=== PATIENT | female | born 1945 | race Caucasian/White ===

== ENCOUNTER 2016-06-13 17:32 | Inpatient (IN) | payer MEDICARE ==
[2016-06-13] MEDS ORDERED: SODIUM CHLORIDE 0.9% 1,000 ML IV STA (18:02)
[2016-06-13] MEDS ORDERED: ONDANSETRON ODT 8 MG TAB.RAPDIS PO STA (18:02)
[2016-06-13] MEDS ORDERED: HYDROmorphone 1 MG/ML 1 ML SYRINGE IVP STA (18:02)
--- NOTE | 2016-06-13 18:03 | ED ---
Abdominal Pain HPI - General Source: patient, RN/, RN notes reviewed Mode of arrival: ambulatory Limitations: no limitations <Ivett Yanez - Last Filed: 06/13/16 21:45> <Alejandro Cortez - Last Filed: 06/13/16 22:12> - General Chief Complaint: Abdominal Pain Stated Complaint: abd pain,fever Time Seen by Provider: 06/13/16 17:43 - History of Present Illness Initial Comments: Patient is a 71-year-old female with chief complaint of right upper quadrant abdominal pain for the past 4 days. Patient reports that this all occurred after eating a turkey dinner on Friday evening. She states that Friday evening into Friday she had sharp pains in her right upper quadrant. Patient reports that since then she's only been eating crackers and water as she is concerned that the pain will return. She saw her primary care provider in the sent her for a CAT scan. She had a CAT scan completed earlier today which revealed cholelithiasis. Patient states that she's also noticed that she's had a fever for the past 2 days. She states that she is in relatively good health. She does have a history of hypertension. She denies any abdominal surgeries in the past. (Ivett Yanez) - Related Data Home Medications Medication Instructions Recorded Confirmed Calcitriol 0.25 mcg PO BID 06/13/16 06/13/16 Enalapril [Vasotec] 5 mg PO DAILY 06/13/16 06/13/16 Ergocalciferol (Vitamin D2) 50,000 unit PO Q30D 06/13/16 06/13/16 [Vitamin D2] Fexofenadine HCl [Aishwarya Allergy] 180 mg PO DAILY PRN 06/13/16 06/13/16 Furosemide [Lasix] 20 mg PO Q48H 06/13/16 06/13/16 Lansoprazole 30 mg PO DAILY 06/13/16 06/13/16 Metoprolol Succinate [Toprol XL] 100 mg PO BID 06/13/16 06/13/16 Oxybutynin Chloride [Ditropan] 5 mg PO BID 06/13/16 06/13/16 Ranitidine HCl [Zantac] 75 mg PO DAILY PRN 06/13/16 06/13/16 Turmeric Root Extract [Turmeric] 500 mg PO DAILY 06/13/16 06/13/16 traMADol HCL [Ultram] 100 mg PO Q6H PRN 06/13/16 06/13/16 Allergies Allergy/AdvReac Type Severity Reaction Status Date / Time banana Allergy Anaphylaxis Verified 06/13/16 18:07 monosodium glutamate [MSG] Allergy Anaphylaxis Verified 06/13/16 18:07 ibuprofen [From Motrin] AdvReac Unknown Verified 06/13/16 18:07 Review of Systems ROS Other: All systems not noted in ROS Statement are negative. <Ivett Yanez - Last Filed: 06/13/16 21:45> ROS Other: All systems not noted in ROS Statement are negative. <Alejandro Cortez - Last Filed: 06/13/16 22:12> ROS Statement: Those systems with pertinent positive or pertinent negative responses have been documented in the HPI. Past Medical History Past Medical History: Hypertension, Osteoarthritis (OA) History of Any Multi-Drug Resistant Organisms: None Reported Past Surgical History: Hysterectomy, Joint Replacement Additional Past Surgical History / Comment(s): knee replacements Past Psychological History: No Psychological Hx Reported Smoking Status: Never smoker Past Alcohol Use History: Occasional Past Drug Use History: None Reported <Ivett Yanez - Last Filed: 06/13/16 21:45> General Exam Limitations: no limitations General appearance: alert, in no apparent distress Head exam: Present: atraumatic, normocephalic, normal inspection Eye exam: Present: normal appearance, PERRL, EOMI. Absent: scleral icterus, conjunctival injection, periorbital swelling ENT exam: Present: normal exam, normal oropharynx, mucous membranes moist Neck exam: Present: normal inspection. Absent: tenderness, meningismus, lymphadenopathy Respiratory exam: Present: normal lung sounds bilaterally. Absent: respiratory distress, wheezes, rales, rhonchi, stridor Cardiovascular Exam: Present: regular rate, normal rhythm, normal heart sounds. Absent: systolic murmur, diastolic murmur, rubs, gallop, clicks GI/Abdominal exam: Present: soft, tenderness (Sinus tenderness over the right upper quadrant. Positive Trevino sign.), normal bowel sounds. Absent: distended , guarding, rebound, rigid Extremities exam: Present: normal inspection, full ROM, normal capillary refill. Absent: tenderness, pedal edema, joint swelling, calf tenderness Back exam: Present: normal inspection Neurological exam: Present: alert, oriented X3, CN II-XII intact Psychiatric exam: Present: normal affect, normal mood Skin exam: Present: warm, dry, intact, normal color. Absent: rash <Ivett Yanez - Last Filed: 06/13/16 21:45> <Alejandro Cortez - Last Filed: 06/13/16 22:12> - General Exam Comments Initial Comments: Pleasant 71-year-old female. No distress. (Ivett Yanez) Course <Ivett Yanez - Last Filed: 06/13/16 21:45> <Alejandro Cortez - Last Filed: 06/13/16 22:12> Vital Signs 06/13/16 06/13/16 06/13/16 17:36 18:39 21:26 Temperature 100.6 F H 99.8 F H 99 F Pulse Rate 94 77 Respiratory 18 19 Rate Blood Pressure 133/63 117/56 O2 Sat by Pulse 99 Oximetry 06/13/16 22:11 Temperature 99.0 F Pulse Rate 88 Respiratory 18 Rate Blood Pressure O2 Sat by Pulse 98 Oximetry - Reevaluation(s) Reevaluation #1: 06/13/16 21:37 Patient reevaluated by myself, Dr. Cortez. Patient does have moderate right upper quadrant tenderness. Results reviewed. Patient updated. Case discussed in detail with Dr. Reddy who will consult and requests medical admission with GI consult as well. 06/13/16 21:37 06/13/16 21:38 Patient does meet sepsis criteria diagnosed at 2100. IV antibiotics has been started. Lactic acid will be ordered. (Alejandro Cortez) Medical Decision Making - Lab Data Result diagrams: 06/13/16 18:30 06/13/16 18:30 - Radiology Data Radiology results: report reviewed <Ivett Yanez - Last Filed: 06/13/16 21:45> - Lab Data Result diagrams: 06/13/16 18:30 06/13/16 18:30 <Alejandro Cortez - Last Filed: 06/13/16 22:12> - Medical Decision Making Patient is 71-year-old female chief complaint of abdominal pain and fever for the past few days. She did have an outpatient CT which did show cholelithiasis P David she does have positive right upper quadrant tenderness. Lab work was reviewed. She does have a mildly elevated total bili of 2.6. Patient labwork is relatively benign. She does arrive with a fever. Patient was started on IV Zosyn. Currently pending and right upper quadrant ultrasound. Right upper quadrant ultrasound to show evidence of a cold fluid consistent with acute cholecystitis. I discussed case with Dr. Cortez. We discussed case with Dr. mendez and he wants consult for GI and for her to be admitted and to medicine. Patient agrees with treatment plan will comply. (Ivett Yanez) Case was also discussed with Dr. chakraborty, who will admit. (Alejandro Cortez) - Lab Data Lab Results 06/13/16 06/13/16 06/13/16 Range/Units 18:30 18:30 21:22 WBC 9.9 (3.8-10.6) k/uL RBC 3.71 L (3.80-5.40) m/uL Hgb 12.0 (11.4-16.0) gm/dL Hct 34.0 (34.0-46.0) % MCV 91.7 (80.0-100.0) fL MCH 32.3 (25.0-35.0) pg MCHC 35.2 (31.0-37.0) g/dL RDW 12.2 (11.5-15.5) % Plt Count 146 L (150-450) k/uL Neutrophils % 84 % Lymphocytes % 6 % Monocytes % 8 % Eosinophils % 0 % Basophils % 0 % Neutrophils # 8.3 H (1.3-7.7) k/uL Lymphocytes # 0.6 L (1.0-4.8) k/uL Monocytes # 0.8 (0-1.0) k/uL Eosinophils # 0.0 (0-0.7) k/uL Basophils # 0.0 (0-0.2) k/uL Sodium 132 L (137-145) mmol/L Potassium 4.1 (3.5-5.1) mmol/L Chloride 97 L (98-107) mmol/L Carbon Dioxide 27 (22-30) mmol/L Anion Gap 8 mmol/L BUN 15 (7-17) mg/dL Creatinine 0.90 (0.52-1.04) mg/dL Est GFR (MDRD) Af Amer >60 (>60 ml/min/1.73 sqM) Est GFR (MDRD) Non-Af >60 (>60 ml/min/1.73 sqM) Glucose 90 (74-99) mg/dL Calcium 9.4 (8.4-10.2) mg/dL Total Bilirubin 2.6 H (0.2-1.3) mg/dL AST 40 H (14-36) U/L ALT 38 (9-52) U/L Alkaline Phosphatase 85 (38-126) U/L Total Protein 5.7 L (6.3-8.2) g/dL Albumin 3.2 L (3.5-5.0) g/dL Amylase 34 (30-110) U/L Lipase 50 (23-300) U/L Urine Color Yellow Urine Appearance Clear (Clear) Urine pH 5.5 (5.0-8.0) Ur Specific [place] 1.038 H (1.001-1.035) Urine Protein Trace H (Negative) Urine Glucose (UA) Negative (Negative) Urine Ketones 1+ H (Negative) Urine Blood Negative (Negative) Urine Nitrite Negative (Negative) Urine Bilirubin Negative (Negative) Urine Urobilinogen <2.0 (<2.0) mg/dL Ur Leukocyte Esterase Negative (Negative) - Radiology Data Ultrasound shows evidence of acute cholecystitis. (Ivett Yanez) Disposition <Ivett Yanez - Last Filed: 06/13/16 21:45> <Alejandro Cortez - Last Filed: 06/13/16 22:12> Clinical Impression: Acute cholecystitis Disposition: ADMITTED IP TO THIS HOSP
[2016-06-13] MEDS ORDERED: ONDANSETRON 4 MG/2 ML VIAL IVP STA (18:15)
[2016-06-13 18:46] LABS: Basophils % (A) 0 %; CH 31.6; CHCM 34.6; Eosinophils % (A) 0 %; HDW 2.43; Luc # (Auto) 0.23; Luc % (Auto) 2; Lymphocytes # (A) 0.6 k/uL (1.0-4.8); Lymphocytes % (A) 6 %; MCH 32.3 pg (25.0-35.0); MCHC 35.2 g/dL (31.0-37.0); MCV 91.7 fL (80.0-100.0); Mean Platelet Volume 6.7; Monocytes # (A) 0.8 k/uL (0-1.0); Monocytes % (A) 8 %; Neutrophils # (A) 8.3 k/uL (1.3-7.7); Neutrophils % (A) 84 %; RBC 3.71 m/uL (3.80-5.40); RDW 12.2 % (11.5-15.5); WBC 9.9 k/uL (3.8-10.6)
[2016-06-13 18:49] LABS: ALT 38 U/L (9-52); AST 40 U/L (14-36); Alkaline Phosphatase 85 U/L (38-126); Amylase 34 U/L (30-110); Anion Gap 8 mmol/L; Blood Urea Nitrogen 15 mg/dL (7-17); Calcium 9.4 mg/dL (8.4-10.2); Carbon Dioxide 27 mmol/L (22-30); Chloride 97 mmol/L (98-107); Glucose 90 mg/dL (74-99); Non-African American GFR(MDRD) >60 (>60 ml/min/1.73 sqM); Potassium 4.1 mmol/L (3.5-5.1); Sodium 132 mmol/L (137-145); Total Bilirubin 2.6 mg/dL (0.2-1.3); Total Protein 5.7 g/dL (6.3-8.2)
[2016-06-13] MEDS ORDERED: PIPERACILLIN-TAZOBACTAM 3.375 GM in DEXTROSE/WATER 1 50ML.BAG IVPB STA (19:24)
--- NOTE | 2016-06-13 20:41 | US ---
EXAMINATION TYPE: US gallbladder DATE OF EXAM: 06/13/2016 8:12 PM COMPARISON: CT in PACS CLINICAL HISTORY: Pain after eating, [place]. EXAM MEASUREMENTS: Liver Length: 17.6 cm Gallbladder Wall: 1.3 cm CBD: 0.5 cm Right Kidney: 10.0 x 5.5 x 4.4 cm Pancreas: Tail obscured by overlying bowel gas, visualized portions show no mass Liver: Measuring upper limits of normal Gallbladder: Multiple large stones visualized, largest measuring 3.3 cm. Gallbladder wall thickened and Pericholecystic fluid visualized Evidence for sonographic Trevino's sign: No CBD: wnl Right Kidney: No hydronephrosis or masses seen IMPRESSION: There are gallstones and gallbladder wall thickening consistent with acute and chronic ch olecystitis. No dilated ducts.
[2016-06-13] MEDS ORDERED: NALOXONE 0.4 MG/ML 1 ML VIAL IV PRN (21:37)
[2016-06-13] MEDS ORDERED: LORATADINE 10 MG TAB PO PRN (21:46)
[2016-06-13] MEDS ORDERED: FAMOTIDINE 20 MG TAB PO PRN (21:46)
[2016-06-13 21:49] LABS: Appearance,Urine Clear (Clear); Bilirubin,Urine Negative (Negative); Glucose,Urine (UA) Negative (Negative); Ketones,Urine 1+ (Negative); Leukocyte Esterase,Urine Negative (Negative); Nitrite,Urine Negative (Negative); PH, Urine 5.5 (5.0-8.0); Protein,Urine Trace (Negative); Specific Gravity,Urine 1.038 (1.001-1.035); UA Billing (MACRO vs. MICRO) CHEM; Urobilinogen,Urine <2.0 mg/dL (<2.0)
[2016-06-13] MEDS ORDERED: FUROSEMIDE 20 MG TAB PO ONE (22:15)
[2016-06-13] MEDS: SODIUM CHLORIDE 0.9% 1,000 ML IV SCH (22:59)
[2016-06-14] MEDS: PIPERACILLIN-TAZOBACTAM 3.375 GM in DEXTROSE/WATER 1 50ML.BAG IVPB SCH ×3 (05:23→17:23)
[2016-06-14] MEDS: ACETAMINOPHEN IV (For NPO) 1,000 MG in EMPTY BAG 1 BAG IVPB SCH ×4 (05:48→17:23)
[2016-06-14 06:21] VITALS: BMI 30.6
[2016-06-14 07:22] LABS: Total Bilirubin 1.8 mg/dL (0.2-1.3)
[2016-06-14] MEDS: CALCITRIOL 0.25 MCG CAP PO SCH ×2 (08:23→19:52)
[2016-06-14] MEDS: LISINOPRIL 10 MG TAB PO SCH (08:23)
[2016-06-14] MEDS: OXYBUTYNIN CHLORIDE 5 MG TAB PO SCH ×2 (08:23→19:52)
[2016-06-14] MEDS: PANTOPRAZOLE 40 MG/10 ML VIAL IV SCH (08:59)
[2016-06-14] MEDS: METOPROLOL SUCCINATE (ER) 100 MG TAB.ER.24H PO SCH ×2 (08:59→19:52)
[2016-06-14] MEDS ORDERED: NON-FORMULARY DRUG (Turmeric Root Extract [Turmeric] 500 MG) PO SCH (09:00)
[2016-06-14] MEDS ORDERED: NON-FORMULARY DRUG (Lansoprazole [Lansoprazole] 30 MG) PO SCH (09:00)
--- NOTE | 2016-06-14 11:04 | P.GSCN ---
<Christi Bailey - Last Filed: 06/14/16 10:51> History of Present Illness Consult date: 06/14/16 Reason for Consult: Abdominal pain History of present illness: 71-year-old female who presented on the day of admission to the emergency room on the with a chief complaint of developing right upper quadrant abdominal pain onset 4 days prior. Patient stated that she woke up Friday morning around 2:30 in the morning with sharp intractable right upper quadrant pain. Patient stated that she thought it was something she ate. She stated that there was a sensation of nausea did not have an emesis. Patient stated the pain continued to persist. Patient stated that she did see her primary care provider in the office and was sent for CAT scan CAT scan was done on the it did show cholelithiasis. Patient stated that she was advised to come to the emergency room to be admitted. Patient also stated that she felt feverish with chills and took her temperature was noticed to have a fever. In the emergency room the temp was 100.6. With a white count of 9.9. Additionally the patient was seen in the emergency room did undergo a ultrasound to evaluate the right upper quadrant pain. The ultrasound did show evidence of fluid consistent with acute cholecystitis. The temp this morning is 98.2. Patient states has not had prior episodes. Patient states has not had an intolerant to spicy or fatty foods in the past. Patient states there has been no frequent stooling. Or change in bowel habits Past surgical history bilateral knee replacements done a partial hysterectomy greater than 30 years prior. Patient states colonoscopy done greater than 10 years ago is no acute findings Patient states that she is a fairly active individual is currently working with activity has not had chest pain tightness or pressure has no cardiac history. Patient's past medical history significant for hypertension which the patient states has been under control as well as osteoarthritis Review of Systems Essentially unremarkable except as mentioned in the present illness Past Medical History Past Medical History: Hypertension, Osteoarthritis (OA) History of Any Multi-Drug Resistant Organisms: None Reported Past Surgical History: Hysterectomy, Joint Replacement Additional Past Surgical History / Comment(s): knee replacements Past Anesthesia/Blood Transfusion Reactions: No Reported Reaction Past Psychological History: No Psychological Hx Reported Smoking Status: Never smoker Past Alcohol Use History: Occasional Past Drug Use History: None Reported - Past Family History Mother Family Medical History: Congestive Heart Failure (CHF), Osteoarthritis (OA), Rheumatoid Arthritis (RA) Father Family Medical History: Cancer Additional Family Medical History / Comment(s): prostate ca Medications and Allergies Home Medications Medication Instructions Recorded Confirmed Type Calcitriol 0.25 mcg PO BID 06/13/16 06/13/16 History Enalapril [Vasotec] 5 mg PO DAILY 06/13/16 06/13/16 History Ergocalciferol (Vitamin D2) 50,000 unit PO Q30D 06/13/16 06/13/16 History [Vitamin D2] Fexofenadine HCl [Aishwarya Allergy] 180 mg PO DAILY PRN 06/13/16 06/13/16 History Furosemide [Lasix] 20 mg PO Q48H 06/13/16 06/13/16 History Lansoprazole 30 mg PO DAILY 06/13/16 06/13/16 History Metoprolol Succinate [Toprol XL] 100 mg PO BID 06/13/16 06/13/16 History Oxybutynin Chloride [Ditropan] 5 mg PO BID 06/13/16 06/13/16 History Ranitidine HCl [Zantac] 75 mg PO DAILY PRN 06/13/16 06/13/16 History Turmeric Root Extract [Turmeric] 500 mg PO DAILY 06/13/16 06/13/16 History traMADol HCL [Ultram] 100 mg PO Q6H PRN 06/13/16 06/13/16 History Allergies Allergy/AdvReac Type Severity Reaction Status Date / Time banana Allergy Anaphylaxis Verified 06/13/16 18:07 monosodium glutamate [MSG] Allergy Anaphylaxis Verified 06/13/16 18:07 ibuprofen [From Motrin] AdvReac Unknown Verified 06/13/16 18:07 Surgical - Exam Vital Signs Temp Pulse Resp BP Pulse Ox 100.6 F H 94 18 133/63 99 06/13/16 17:36 06/13/16 17:36 06/13/16 17:36 06/13/16 17:36 06/13/16 17:36 GENERAL APPEARANCE: 8-year-old female looking younger than stated age patient is alert, oriented, in no acute distress. Currently states right upper quadrant pain has resolved VITAL SIGNS: Reviewed HEENT: Head is normocephalic and atraumatic. Pupils are equal and reactive. The nares are patent. Oropharynx is clear without lesions. NECK: Supple without lymphadenopathy. Traches midline. HEART: S1, S2. Regular rate and rhythm. Denying chest pain no murmur LUNGS: No crackles or wheezes are heard. On room air sats are 97% no cough noted ABDOMEN: Soft, slight tenderness to the right upper quadrant, nondistended with good bowel sounds. No peritoneal signs. No palpable organomegaly or masses. EXTREMITIES: Normal skin color and turgor. No cyanosis, rash, ulceration, clubbing or edema. Radial pedal pulses are 2/4 bilaterally. NEUROLOGICAL: No focal deficits. Strength and sensation are grossly intact. Results - Labs 06/13/16 18:30 06/13/16 18:30 Abnormal Lab Results - Last 24 Hours (Table) 06/14/16 06/14/16 Range/Units 06:53 06:53 Plasma Lactic Acid [place] 0.6 L (0.7-2.0) mmol/L Total Bilirubin 1.8 H (0.2-1.3) mg/dL Adrenal panel 06/14/16 Range/Units 06:53 Total Bilirubin 1.8 H (0.2-1.3) mg/dL Assessment and Plan Plan: Impression Present on admission right upper quadrant pain febrile nausea suspect due to acute cholecystitis Ultrasound of the gallbladder on June 13 gallstones bowel wall thickening consistent with acute on chronic cholecystitis no dilated ducts Hypertension essential controlled History of osteoarthritis CAT scan of the abdomen pelvis done on the cholelithiasis Present on admission elevated total bilirubin Plan Await medical clearance tentatively scheduled for a laparoscopic cholecystectomy possible open this afternoon Await GIs input EKG now Pain control Continue IV Zosyn as ordered Resume home meds as appropriate DVT and GI prophylaxis IV fluid for hydration Tentatively tentatively schedule for a lap cholecystectomy this afternoon by surgical service Dr. Duran Thank you for allowing us to participate in the surgical management of your patient will follow closely with further recommendations pending clinical course The above dictated assessment and findings were discussed with dr duran . Impression and the plan of care have been dictated as directed. Christi Bailey nurse practitioner acting as a scribe for dr duran <Deonna Duran W - Last Filed: 06/14/16 13:50> Surgical - Exam Vital Signs Temp Pulse Resp BP Pulse Ox 100.6 F H 94 18 133/63 99 06/13/16 17:36 06/13/16 17:36 06/13/16 17:36 06/13/16 17:36 06/13/16 17:36 Results - Labs 06/14/16 06:53 06/14/16 06:53 Abnormal Lab Results - Last 24 Hours (Table) 06/14/16 06/14/16 06/14/16 Range/Units 06:53 06:53 06:53 RBC 3.43 L (3.80-5.40) m/uL Hgb 11.0 L (11.4-16.0) gm/dL Hct 32.5 L (34.0-46.0) % Lymphocytes # 0.5 L (1.0-4.8) k/uL Plasma Lactic Acid [place] 0.6 L (0.7-2.0) mmol/L Total Bilirubin 1.8 H (0.2-1.3) mg/dL Total Protein 4.9 L (6.3-8.2) g/dL Albumin 2.6 L (3.5-5.0) g/dL Diabetes panel 06/14/16 Range/Units 06:53 Sodium 139 (137-145) mmol/L Potassium 4.1 (3.5-5.1) mmol/L Chloride 104 (98-107) mmol/L Carbon Dioxide 27 (22-30) mmol/L BUN 12 (7-17) mg/dL Creatinine 0.93 (0.52-1.04) mg/dL Glucose 92 (74-99) mg/dL Calcium 9.3 (8.4-10.2) mg/dL AST 25 (14-36) U/L ALT 35 (9-52) U/L Alkaline Phosphatase 71 (38-126) U/L Total Protein 4.9 L (6.3-8.2) g/dL Albumin 2.6 L (3.5-5.0) g/dL Calcium panel 06/14/16 Range/Units 06:53 Calcium 9.3 (8.4-10.2) mg/dL Albumin 2.6 L (3.5-5.0) g/dL Pituitary panel 06/14/16 Range/Units 06:53 Sodium 139 (137-145) mmol/L Potassium 4.1 (3.5-5.1) mmol/L Chloride 104 (98-107) mmol/L Carbon Dioxide 27 (22-30) mmol/L BUN 12 (7-17) mg/dL Creatinine 0.93 (0.52-1.04) mg/dL Glucose 92 (74-99) mg/dL Calcium 9.3 (8.4-10.2) mg/dL Adrenal panel 06/14/16 Range/Units 06:53 Sodium 139 (137-145) mmol/L Potassium 4.1 (3.5-5.1) mmol/L Chloride 104 (98-107) mmol/L Carbon Dioxide 27 (22-30) mmol/L BUN 12 (7-17) mg/dL Creatinine 0.93 (0.52-1.04) mg/dL Glucose 92 (74-99) mg/dL Calcium 9.3 (8.4-10.2) mg/dL Total Bilirubin 1.8 H (0.2-1.3) mg/dL AST 25 (14-36) U/L ALT 35 (9-52) U/L Alkaline Phosphatase 71 (38-126) U/L Total Protein 4.9 L (6.3-8.2) g/dL Albumin 2.6 L (3.5-5.0) g/dL Assessment and Plan Plan: The patient has acute cholecystitis and s overall very healthy No cardiac history , ambulates normally for 3 blocks and climbs stairs without dyspnea or shortness of breath. Slightly higher than average risk due to age and duration of symptoms She understands the risks and is ready to proceed. (Deonna Duran MD)
[2016-06-14 11:59] LABS: ALT 35 U/L (9-52); AST 25 U/L (14-36); Alkaline Phosphatase 71 U/L (38-126); Anion Gap 8 mmol/L; Basophils % (A) 0 %; Blood Urea Nitrogen 12 mg/dL (7-17); CH 31.3; CHCM 33.2; Calcium 9.3 mg/dL (8.4-10.2); Carbon Dioxide 27 mmol/L (22-30); Chloride 104 mmol/L (98-107); Eosinophils # (A) 0.1 k/uL (0-0.7); Eosinophils % (A) 2 %; Glucose 92 mg/dL (74-99); HCT 32.5 % (34.0-46.0); HDW 2.39; Luc # (Auto) 0.15; Luc % (Auto) 2; Lymphocytes # (A) 0.5 k/uL (1.0-4.8); Lymphocytes % (A) 8 %; MCHC 33.8 g/dL (31.0-37.0); MCV 94.8 fL (80.0-100.0); Mean Platelet Volume 7.3; Monocytes # (A) 0.6 k/uL (0-1.0); Monocytes % (A) 9 %; Neutrophils # (A) 5.1 k/uL (1.3-7.7); Neutrophils % (A) 80 %; Non-African American GFR(MDRD) 60 (>60 ml/min/1.73 sqM); Potassium 4.1 mmol/L (3.5-5.1); RBC 3.43 m/uL (3.80-5.40); RDW 12.4 % (11.5-15.5); Sodium 139 mmol/L (137-145); Total Protein 4.9 g/dL (6.3-8.2); WBC 6.4 k/uL (3.8-10.6); WBC (Perox) 7.14
[2016-06-14] MEDS: HEPARIN SODIUM,PORCINE 5,000 UNIT/ML 1 ML VIAL SQ SCH ×2 (18:12→19:51)
--- NOTE | 2016-06-14 18:43 | CONS ---
DATE OF CONSULTATION: 06/14/2016 REASON FOR CONSULTATION: Abdominal pain, elevated LFTs. HISTORY OF PRESENT ILLNESS: The patient is a 71-year-old pleasant lady who was admitted to the hospital with acute onset of severe right upper quadrant abdominal pain that started on Friday morning. She woke up from sleep with severe pain followed by multiple episodes of nausea and vomiting. The pain continued to progressively get worse through the day, and the next day it started subsiding. She went and saw her family physician on an outpatient basis and was ordered a CT of the abdomen and pelvis done that was done yesterday morning and showed gallstones. She started having low-grade fever and hence came into the emergency room and subsequently was admitted to the hospital for further evaluation. She also had ultrasound of the right upper quadrant done yesterday in the ER and that showed multiple gallstones but no biliary ductal dilation. The reason we are consulted is because she was noted to have mild elevation of serum transaminases and bilirubin up to 2 at the time of admission to the hospital. Since being in the hospital she is feeling much better. She still has some right upper quadrant abdominal pain, but significantly improved. Nausea and vomiting have resolved. No further fever, chills or night sweats. Her past medical history is significant for degenerative joint disease and hypertension. PAST SURGICAL HISTORY: Hysterectomy and knee replacement. Medications at home include: 1. Ultram. 2. Zantac. 3. Ditropan. 4. Toprol. 5. Lansoprazole. 6. Lasix. 7. Vitamin D2. 8. Vasotec. 9. Calcitriol. ALLERGIES: MSG and IBUPROFEN. SOCIAL HISTORY: No smoking. No alcohol use. FAMILY HISTORY: Unremarkable. REVIEW OF SYSTEMS: CARDIOPULMONARY: No chest pain or shortness of breath. GENITOURINARY: No dysuria or hematuria. MUSCULOSKELETAL: Unremarkable. SKIN: Unremarkable. ENDOCRINE: Unremarkable. PSYCHIATRIC: Unremarkable. NEUROLOGY: Unremarkable. ENT/VISION: Unremarkable. CONSTITUTIONAL: No recent weight loss. No fever, chills, night sweats. On physical examination, she appears comfortable, in no apparent distress. Vital signs are stable. Blood pressure is 115/56, pulse rate 74, temperature 98.2. HEENT: Unremarkable. Conjunctivae pink. Sclerae anicteric. Oral cavity with no lesions. NECK: No JVD or lymph node enlargement. Chest was clear to auscultation. HEART: Regular rate and rhythm. ABDOMEN: Soft. There was mild tenderness in the right upper quadrant area. No rebound or rigidity. Bowel sounds are positive. No organomegaly. EXTREMITIES: No pedal edema. SKIN: No rashes. NEURO: Alert and oriented x3. No focal deficits. LABS DONE AT THE TIME OF ADMISSION TO THE HOSPITAL: Hemoglobin 12, WBC 9.9, platelets 146. T-bili was up to 2.6, but today it is down to 1.8. AST was 40. ALT was 38. Today they are 25 and 35, respectively. Amylase and lipase are within normal limits. IMPRESSION: This is a lady who presents with acute onset of severe right upper quadrant abdominal pain 3 days ago associated with nausea, vomiting, fever, chills; at present doing much better. Ultrasound and CT scan did show evidence of gallstones but no biliary ductal dilation. She was noted to have mild elevation of bilirubin up to 2.8 with minimal elevation of AST at 40, but ALT is 38. Today bilirubin is down to 1.3 and ALT and AST are completely normal. Ultrasound and CT scan did not show any biliary ductal dilation. At this time it is unlikely we are dealing with any common bile duct stones, given the minimal degree of serum transaminases elevation and improving bilirubin. RECOMMENDATIONS: 1. Proceed with gallbladder surgery as planned by Dr. Padilla today. 2. Repeat LFTs tomorrow. Will follow the patient closely during her hospital stay. Thank you for this consultation.
--- NOTE | 2016-06-14 23:04 | HP ---
DATE OF ADMISSION: 06/13/2016 PRESENTING COMPLAINT: Abdominal pain. HISTORY OF PRESENTING COMPLAINT: A very pleasant 71-year-old patient I saw this morning who follows with Dr. Manuel. Chronic stable medical conditions include hypertension, osteoarthritis. Patient about 5 days ago started to have right upper quadrant pain, progressed to have nausea, vomiting, chills, fever. Did go and see Dr. Manuel's nurse practitioner 2 days ago. Did have a gallbladder ultrasound yesterday that showed multiple large gallstones and evidence of acute cholecystitis. Patient did have a CT scan as an outpatient suggestive of the same. REVIEW OF SYSTEMS: CONSTITUTIONAL: Weak, tired, febrile. HEENT: None. RESPIRATORY: None. CARDIOVASCULAR: None. GASTROINTESTINAL: As above. GENITOURINARY: None. MUSCULOSKELETAL: Aches and pains in different joints. DERMATOLOGICAL: None. HEMATOLOGICAL: None. LYMPHATIC: None. PSYCHIATRY: None. NEUROLOGICAL: None. PAST MEDICAL HISTORY: Hypertension, osteoarthritis. PAST SURGICAL HISTORY: Joint replacement, knee replacement, hysterectomy. SOCIAL HISTORY: Lives by herself, drinks alcohol occasionally, does not smoke, helps out in the shopping mall. FAMILY HISTORY: CHF, osteoarthritis, rheumatoid arthritis, prostate cancer. HOME MEDICATIONS: 1. Ultram 100 mg every 6 hours p.r.n. 2. Demadex 5 mg p.o. daily. 3. Zantac 75 mg p.o. daily p.r.n. 4. Ditropan 5 mg p.o. b.i.d. 5. Toprol-XL 100 mg p.o. b.i.d. 6. Lansoprazole 30 mg p.o. daily. 7. Lasix 20 mg p.o. q.48 hours. 8. Vitamin D2, 50,000 units p.o. q. 30 days. 9. Vasotec 5 mg p.o. daily. 10. Calcitriol 0.25 mg p.o. b.i.d. ALLERGIES: BANANA, MONOSODIUM GLUTAMATE MOTRIN. On examination, vital signs on presentation: Temperature 100.6, pulse 94, respirations 18, blood pressure 133/63, pulse ox 99% on room air. GENERAL APPEARANCE: Average build, lying in bed, not in distress. EYES: Pupils equal. Conjunctivae normal. HEENT: Oral cavity normal. NECK: JVD not raised. Mass not palpable. RESPIRATORY: Effort normal. LUNGS: Fair air entry. CARDIOVASCULAR: First and second sounds normal. No edema. ABDOMEN: Right upper quadrant tenderness present. No guarding or rigidity. Liver and spleen not palpable. LYMPHATIC: No lymph nodes palpable in neck or axillae. PSYCHIATRIC: Alert and oriented x3. Mood and affect normal. NEUROLOGICAL: Pupils equal. Cranial nerves grossly intact. Power and sensation grossly intact. INVESTIGATIONS: White count 9.9, hemoglobin 12. Potassium 4.1. Ultrasound of the abdomen shows gallstones and pericholecystic fluid. ASSESSMENT: 1. Acute cholecystitis with gallstones. 2. Hyponatremia, suspect normo-osmolar, probably from vomiting. 3. Essential hypertension. 4. Primary osteoarthritis in multiple joints, bilateral. PLAN: From a cardiac standpoint, patient is rather active with no cardiac symptoms. Care was discussed with the patient. Mae for DVT prophylaxis. General Surgery was consulted.
[2016-06-14] MEDS: HYDROmorphone 1 MG/ML 1 ML SYRINGE IV PRN (23:19)
[2016-06-15] MEDS: PIPERACILLIN-TAZOBACTAM 3.375 GM in DEXTROSE/WATER 1 50ML.BAG IVPB SCH ×3 (02:16→17:45)
[2016-06-15] MEDS: SODIUM CHLORIDE 0.9% 1,000 ML IV SCH ×2 (02:42→04:29)
[2016-06-15 07:16] LABS: ALT 35 U/L (9-52); AST 25 U/L (14-36); Alkaline Phosphatase 75 U/L (38-126); Anion Gap 13 mmol/L; Blood Urea Nitrogen 10 mg/dL (7-17); Calcium 9.6 mg/dL (8.4-10.2); Carbon Dioxide 21 mmol/L (22-30); Chloride 111 mmol/L (98-107); Glucose 72 mg/dL (74-99); Non-African American GFR(MDRD) >60 (>60 ml/min/1.73 sqM); Potassium 4.6 mmol/L (3.5-5.1); Sodium 145 mmol/L (137-145); Total Bilirubin 1.4 mg/dL (0.2-1.3); Total Protein 5.2 g/dL (6.3-8.2)
[2016-06-15] MEDS: CALCITRIOL 0.25 MCG CAP PO SCH ×2 (07:44→21:10)
[2016-06-15] MEDS: OXYBUTYNIN CHLORIDE 5 MG TAB PO SCH ×2 (07:48→21:10)
[2016-06-15] MEDS: FUROSEMIDE 20 MG TAB PO SCH (07:48)
[2016-06-15] MEDS: LISINOPRIL 10 MG TAB PO SCH (07:48)
[2016-06-15] MEDS: METOPROLOL SUCCINATE (ER) 100 MG TAB.ER.24H PO SCH ×2 (07:48→21:53)
[2016-06-15] MEDS: HEPARIN SODIUM,PORCINE 5,000 UNIT/ML 1 ML VIAL SQ SCH ×2 (07:48→21:10)
[2016-06-15] MEDS: PANTOPRAZOLE 40 MG/10 ML VIAL IV SCH (07:49)
[2016-06-15] MEDS ORDERED: HYDROmorphone 1 MG/ML 1 ML SYRINGE IVP PRN (11:37)
[2016-06-15] MEDS ORDERED: ONDANSETRON 4 MG/2 ML VIAL IVP ONE (11:37)
[2016-06-15] MEDS ORDERED: DEXAMETHASONE SOD PHOSPHATE 10 MG/ML 1 ML VIAL IV ONE (11:37)
[2016-06-15] MEDS ORDERED: IV FLUID CONTINUATION 200 ML IV ONE (12:08)
[2016-06-15] MEDS ORDERED: ONDANSETRON 4 MG/2 ML VIAL ONE (12:08)
[2016-06-15] MEDS ORDERED: LIDOCAINE 1% INJ 10MG/ML (20 ML MDV) ONE (12:08)
[2016-06-15] MEDS ORDERED: HYDROmorphone (PF) 1 MG/ML ONE (12:08)
[2016-06-15] MEDS ORDERED: fentaNYL (PF) 50 MCG/ML 2 ML AMP ONE (12:08)
[2016-06-15] MEDS ORDERED: NEOSTIGMINE 1 MG/ML 10 ML VIAL ONE (12:08)
[2016-06-15] MEDS ORDERED: GLYCOPYRROLATE 0.2 MG/ML 2 ML VIAL ONE (12:08)
[2016-06-15] MEDS ORDERED: PROPOFOL 10 MG/ML 20 ML VIAL IV ONE (12:08)
[2016-06-15] MEDS ORDERED: SUCCINYLCHOLINE CHLORIDE 100 MG/5 ML SYR IV ONE (12:08)
[2016-06-15] MEDS ORDERED: ROCURONIUM BROMIDE 10 MG/ML 10 ML VIAL IV ONE (12:08)
[2016-06-15] MEDS ORDERED: MIDAZOLAM 2 MG/2 ML VIAL ONE (12:08)
[2016-06-15] MEDS ORDERED: SODIUM CHLORIDE 0.9% 1,000 ML IV ONE (12:30)
[2016-06-15] MEDS ORDERED: BUPIVACAIN-EPI 0.25%-1:200,000 30 ML VIAL SQ ONE (12:40)
--- NOTE | 2016-06-15 13:58 | PN ---
DATE OF SERVICE: 06/15/2016 Patient is a 71-year-old pleasant lady admitted to the hospital with acute onset of severe right upper quadrant abdominal pain for the last 4 days' duration with low-grade fever and chills. She did have ultrasound that showed evidence of gallstones and CAT scan also showed the same. She was noted to have mild elevation of serum transaminases and bili up to 2 and hence we are consulting in regards to this issue. She was seen in consultation yesterday. She is doing much better. The pain has resolved. She is going for gallbladder surgery today. She reports no new symptoms today. On physical examination, she appears comfortable in no apparent distress. Vital signs are stable. Blood pressure 110/56, pulse 67, temperature 98.3. HEENT: Unremarkable. Conjunctivae pink. Sclerae anicteric. Oral cavity, no lesions. NECK: No JVD or lymph node enlargement. Chest was clear to auscultation. HEART: Regular rate and rhythm. ABDOMEN: Soft. Bowel sounds are positive. Mild tenderness in the right upper quadrant area. EXTREMITIES: No pedal edema. SKIN: No rashes. NEURO: Alert and oriented x3. No focal deficits. Labs from today: CBC was not done, but liver enzymes showed an AST of 25. ALT is 35 and T-bili is 1.4. Amylase and lipase are normal. IMPRESSION: Symptomatic gallstones with possible acute cholecystitis. Ultrasound and CAT scan showed gallstones but no biliary ductal dilation. She was noted to have very minimal elevation of serum transaminases and bilirubin up to 2.6, but today they have almost normalized. Doubt dealing with any CBD stones. RECOMMENDATIONS: 1. Agree with laparoscopic cholecystectomy. 2. No indication for an ERCP. 3. Will sign off. Call us if needed. Thank you for this consultation.
[2016-06-15] MEDS: LACTATED RINGERS 1,000 ML IV SCH (14:20)
--- NOTE | 2016-06-15 14:23 | P.OP ---
Date of Procedure: 06/15/16 Preoperative Diagnosis: Acute cholecystitis Postoperative Diagnosis: Acute gangrenous cholecystitis Procedure(s) Performed: Laparoscopic cholecystectomy Anesthesia: JOEL Surgeon: Deonna Padilla Estimated Blood Loss (ml): 100 Pathology: other Condition: stable Disposition: PACU Operative Findings: Acutely inflamed gangrenous cholecysitits with large gallstones. Description of Procedure: Cole is a 71-year-old female who presented with abdominal pain in the epigastric region for the last 5 days there is no history of nausea vomiting she was having fever when she came in. There is no icterus on presentation however she had elevated bilirubin which has been trending downwards. Ultrasound revealed thickened gallbladder wall with acute on chronic cholecystitis. Clinical diagnosis of acute cholecystitis was made. And detailed discussion was done with the patient for the possibility of laparoscopic possible open cholecystectomy. Informed consent was obtained. Patient was identified in the preoperative operating holding area and after and question taken to the operating room placed in supine position given general anesthesia with endotracheal intubation. Appropriate timeout was called. Abdomen was prepped and draped in the usual sterile surgical fashion after which supraumbilical region was infiltrated with local anesthesia and incision made with 11 blade. Veress needle was used to enter the abdominal cavity and positioned checked with the help of a drop test after which the abdomen was insufflated to 18 mmHg. After the removal of the Veress needle with the help of the Optiview technique the abdominal cavity was entered with a 5 mm port. Two 5 mm ports were placed in the right upper quadrant and one 12 mm port in the epigastrium. Gallbladder was identified to be significantly distended and encased the inflammatory adhesions. Omental adhesions were taken down bluntly. Once the fundus was exposed the ovarian needle with a 50 cc syringe was used to decompress the gallbladder after which it was retracted superiorly and cephlad. There was a thick inflammatory tissue around it. The infundibulum was very thickened. The right lateral peritoneal attachment between the gallbladder and the liver were taken down with the help of electrocautery to allow more mobility. Further blunt dissection was done so as to remove the inflammatory tissue distal to the fundus in the region of the cystic duct and Calot's triangle. This led to clear identification of the cystic duct and Calot 's node. The artery was not identified clearly in the mass. Once the cystic duct was clearly identified as well as the CBD the cystic duct was clipped proximally and distally transected sharply. At this time there was bleeding from the cystic artery which allowed its identification and was clipped . It was transected with the help of cautery after which the gallbladder was taken off the gallbladder fossa with the help of electrocautery. It was noted was to the posterior wall also significantly thickened and there were pockets of pus between the gallbladder and the gallbladder fossa. The gallbladder was taken out and placed in an Endo Catch bag and removed to the epigastric site after dilation with the help of a Galina. The gallbladder was significantly distended and large approximately 6" x 4" x 3". The port was replaced and abdomen reinsufflated to 18 mmHg. The fossa was inspected and hemostasis secured with the help of electrocautery and placement of Surgicel material. After thoroughly irrigating and second right the abdomen round drain was placed in the subhepatic fossa and brought out to the 5 mm port site in the right side. It was secured with the help of 2-0 nylon. At this time the procedure was completed and ports were removed. The epigastric port site was closed with the help of a running 0 Vicryl using the UR 6. Skin in the epigastric portion was closed with sandee and the remaining with 4-0 Monocryl. Local anesthesia was infiltrated into the incisions. Dermabond was applied on the 5 mm port sites and dressing applied on the epigastric incision. Patient tolerated procedure well there were no other complications she was extubated and taken to recovery room in stable condition.
[2016-06-15] MEDS: HYDROmorphone 1 MG/ML 1 ML SYRINGE IV PRN (19:59)
[2016-06-16] MEDS: HYDROmorphone 1 MG/ML 1 ML SYRINGE IV PRN ×3 (01:25→11:07)
[2016-06-16] MEDS: PIPERACILLIN-TAZOBACTAM 3.375 GM in DEXTROSE/WATER 1 50ML.BAG IVPB SCH ×3 (01:25→16:51)
--- NOTE | 2016-06-16 07:22 | PN ---
DATE OF SERVICE: 06/15/2016 PRESENTING COMPLAINT: Acute cholecystitis. INTERVAL HISTORY: This patient earlier today underwent laparoscopic cholecystectomy by Dr. Padilla. Found to have gangrenous gallbladder, has got a drain in place. Some pain is present. The patient is on popsicles. Lying in bed. Review of systems done for constitutional, cardiovascular, GI, pulmonary; relevant findings as above. Current medications include IV Zosyn. On examination, temperature 97.2, pulse 93, respiratory rate 16, blood pressure 147/48, pulse ox 95% on room air. GENERAL APPEARANCE: Lying in bed, slightly uncomfortable. EYES: Pupils equal. Conjunctivae normal. NECK: JVD not raised. Mass not palpable. RESPIRATORY: Effort normal. Lungs are clear. CARDIOVASCULAR: First and second sounds normal. No edema. ABDOMEN: Tender, right upper quadrant pain, no guarding or rigidity. Liver and spleen not palpable. PSYCHIATRY: Alert and oriented x3. Mood and affect normal. INVESTIGATIONS: Potassium 4.6. ASSESSMENT: 1. Acute gangrenous cholecystitis with gallstones, status post laparoscopic cholecystectomy. 2. Hyponatremia, suspect normal osmolar. 3. Essential hypertension. 4. Primary osteoarthritis of multiple joints, bilateral. PLAN: Continue with IV antibiotics. Patient is on popsicles and IV fluids. Repeat labs in the morning. Care was discussed with the patient.
[2016-06-16] MEDS: HEPARIN SODIUM,PORCINE 5,000 UNIT/ML 1 ML VIAL SQ SCH ×2 (07:28→20:06)
[2016-06-16] MEDS: CALCITRIOL 0.25 MCG CAP PO SCH ×2 (07:28→20:06)
[2016-06-16] MEDS: OXYBUTYNIN CHLORIDE 5 MG TAB PO SCH ×2 (07:29→20:10)
[2016-06-16] MEDS: PANTOPRAZOLE 40 MG/10 ML VIAL IV SCH (07:29)
[2016-06-16 07:43] LABS: Basophils % (A) 0 %; CH 30.6; CHCM 31.5; Eosinophils % (A) 1 %; HCT 32.3 % (34.0-46.0); HDW 2.35; HGB 10.1 gm/dL (11.4-16.0); Luc # (Auto) 0.14; Luc % (Auto) 2; Lymphocytes # (A) 0.8 k/uL (1.0-4.8); Lymphocytes % (A) 13 %; MCH 30.5 pg (25.0-35.0); MCHC 31.2 g/dL (31.0-37.0); MCV 97.7 fL (80.0-100.0); Mean Platelet Volume 6.7; Monocytes # (A) 0.4 k/uL (0-1.0); Monocytes % (A) 7 %; Neutrophils # (A) 4.6 k/uL (1.3-7.7); Neutrophils % (A) 77 %; RBC 3.31 m/uL (3.80-5.40); RDW 12.9 % (11.5-15.5); WBC 5.9 k/uL (3.8-10.6); WBC (Perox) 6.18
[2016-06-16 08:01] LABS: ALT 42 U/L (9-52); AST 41 U/L (14-36); Alkaline Phosphatase 65 U/L (38-126); Anion Gap 8 mmol/L; Blood Urea Nitrogen 10 mg/dL (7-17); Calcium 8.8 mg/dL (8.4-10.2); Carbon Dioxide 24 mmol/L (22-30); Chloride 109 mmol/L (98-107); Glucose 90 mg/dL (74-99); Non-African American GFR(MDRD) >60 (>60 ml/min/1.73 sqM); Potassium 3.6 mmol/L (3.5-5.1); Sodium 141 mmol/L (137-145); Total Bilirubin 0.8 mg/dL (0.2-1.3); Total Protein 4.6 g/dL (6.3-8.2)
[2016-06-16] MEDS: LISINOPRIL 10 MG TAB PO SCH (09:50)
[2016-06-16] MEDS: LACTATED RINGERS 1,000 ML IV SCH (14:26)
[2016-06-16] MEDS: METOPROLOL SUCCINATE (ER) 100 MG TAB.ER.24H PO SCH ×2 (15:29→20:10)
[2016-06-16] MEDS: HYDROcodone/APAP 5-325MG 1 EACH TAB PO PRN ×2 (17:04→22:48)
[2016-06-17] MEDS: PIPERACILLIN-TAZOBACTAM 3.375 GM in DEXTROSE/WATER 1 50ML.BAG IVPB SCH ×2 (01:46→11:12)
[2016-06-17] MEDS: HYDROcodone/APAP 5-325MG 1 EACH TAB PO PRN ×2 (04:58→10:38)
[2016-06-17 07:05] LABS: Basophils % (A) 0 %; CH 31.1; CHCM 33.1; Eosinophils # (A) 0.1 k/uL (0-0.7); Eosinophils % (A) 2 %; HCT 31.5 % (34.0-46.0); HDW 2.52; HGB 10.5 gm/dL (11.4-16.0); Luc % (Auto) 2; Lymphocytes # (A) 0.8 k/uL (1.0-4.8); Lymphocytes % (A) 16 %; MCH 31.6 pg (25.0-35.0); MCHC 33.4 g/dL (31.0-37.0); MCV 94.5 fL (80.0-100.0); Mean Platelet Volume 7.3; Monocytes # (A) 0.3 k/uL (0-1.0); Monocytes % (A) 6 %; Neutrophils # (A) 3.4 k/uL (1.3-7.7); Neutrophils % (A) 73 %; RBC 3.34 m/uL (3.80-5.40); RDW 12.5 % (11.5-15.5); WBC 4.6 k/uL (3.8-10.6); WBC (Perox) 4.88
[2016-06-17 07:43] LABS: ALT 34 U/L (9-52); AST 28 U/L (14-36); Alkaline Phosphatase 68 U/L (38-126); Anion Gap 7 mmol/L; Blood Urea Nitrogen 7 mg/dL (7-17); Calcium 9.1 mg/dL (8.4-10.2); Carbon Dioxide 29 mmol/L (22-30); Chloride 110 mmol/L (98-107); Glucose 107 mg/dL (74-99); Non-African American GFR(MDRD) 57 (>60 ml/min/1.73 sqM); Potassium 3.9 mmol/L (3.5-5.1); Sodium 146 mmol/L (137-145); Total Bilirubin 0.6 mg/dL (0.2-1.3); Total Protein 4.8 g/dL (6.3-8.2)
--- NOTE | 2016-06-17 07:44 | PN ---
DATE OF SERVICE: 06/16/2016 PRESENTING COMPLAINT: Acute cholecystitis. INTERVAL HISTORY: This patient is status post surgery for gangrenous cholecystitis, doing better. Advanced to soft diet today. Patient had small liquid stool yesterday. Up and about. Abdominal pain is better controlled. No nausea or vomiting. Review of systems done for constitutional, cardiovascular, GI, pulmonary; relevant findings as above. Current medications are reviewed that include IV Zosyn. On examination, temperature 98.6, pulse 71, respiration 19, blood pressure 11/572, pulse ox 95% on room air. GENERAL APPEARANCE: Sitting up on a chair, comfortable. EYES: Pupils equal. Conjunctivae normal. NECK; JVD not raised. Mass not palpable. RESPIRATORY: Effort normal. Lungs are clear. CARDIOVASCULAR: First and second sounds normal. No edema. ABDOMEN: Drain in the right side. Liver and spleen not palpable. Some tenderness present. Bowel sounds are present. PSYCHIATRY: Alert and oriented x3. Mood and affect normal. INVESTIGATIONS: White count 5.9, hemoglobin 10.1. Potassium 3.6. ASSESSMENT: 1. Acute gangrenous cholecystitis with gallstones, status post laparoscopic cholecystectomy. 2. Hyponatremia, suspect hypoosmolar. 3. Essential hypertension. 4. Primary osteoarthritis of multiple joints, bilateral. 5. Hyperbilirubinemia, recovered. 6. Hypoalbuminemia, an acute phase reactant, not malnutrition. PLAN: Overall doing much better. Patient's sodium has recovered. Encouraged to ambulate.
[2016-06-17 07:52] VITALS: BP 135/98; PULSE 71; RESP 16; TEMP 98.3
[2016-06-17] MEDS: METOPROLOL SUCCINATE (ER) 100 MG TAB.ER.24H PO SCH (10:07)
[2016-06-17] MEDS: LISINOPRIL 10 MG TAB PO SCH (10:08)
[2016-06-17] MEDS: CALCITRIOL 0.25 MCG CAP PO SCH (10:08)
[2016-06-17] MEDS: FUROSEMIDE 20 MG TAB PO SCH (10:08)
[2016-06-17] MEDS: OXYBUTYNIN CHLORIDE 5 MG TAB PO SCH (10:08)
[2016-06-17] MEDS: PANTOPRAZOLE 40 MG/10 ML VIAL IV SCH (10:39)
[2016-06-17] MEDS: HEPARIN SODIUM,PORCINE 5,000 UNIT/ML 1 ML VIAL SQ SCH (10:39)
[2016-06-17] MEDS: LACTATED RINGERS 1,000 ML IV SCH (11:51)
--- NOTE | 2016-06-17 12:51 | P.DS ---
Providers Date of admission: 06/13/16 22:02 Expected date of discharge: 06/17/16 Attending physician: Kojo Palacios Primary care physician: [facility] Course: 71-year-old female who presented on the day of admission to the emergency room on the with a chief complaint of developing right upper quadrant abdominal pain onset 4 days prior. Patient stated that she woke up Friday morning around 2:30 in the morning with sharp intractable right upper quadrant pain. Patient stated that she thought it was something she ate. She stated that there was a sensation of nausea did not have an emesis. Patient stated the pain continued to persist. Patient stated that she did see her primary care provider in the office and was sent for CAT scan CAT scan was done on the it did show cholelithiasis. Patient stated that she was advised to come to the emergency room to be admitted. Patient also stated that she felt feverish with chills and took her temperature was noticed to have a fever. In the emergency room the temp was 100.6. With a white count of 9.9. Additionally the patient was seen in the emergency room did undergo a ultrasound to evaluate the right upper quadrant pain. The ultrasound did show evidence of fluid consistent with acute cholecystitis. The temp this morning is 98.2. Patient states has not had prior episodes. Patient states has not had an intolerant to spicy or fatty foods in the past. Patient states there has been no frequent stooling. Or change in bowel habits. Patient underwent laparoscopic cholecystectomy for an acute gangrenous cholecystitis on June 15. Patient developed no postop events. And on the was felt to be medically stable and appropriate proceed with a discharge to home Impression discharge diagnosis Present on admission right upper quadrant epigastric pain suspect due to acute cholecystitis Status post June 15 laparoscopic cholecystectomy with large gallstones Acutely inflamed gangrenous cholecysitits with large gallstones.Acutely inflamed gangrenous cholecysitits with large gallstones. Present on admission mild Hyponatremia resolved Essential hypertension Primary osteoarthritis multiple joints bilateral Hyperbilirubinemia recovered The above dictated assessment and findings were discussed with dr duran . Impression and the plan of care have been dictated as directed. Christi Bailey nurse practitioner acting as a scribe for dr duran Plan - Discharge Summary New Discharge Prescriptions: Amoxic-Pot Clav 875-125Mg [Augmentin 875-125] 1 tab PO Q12HR #14 tablet HYDROcodone/APAP 5-325MG [Watkins 5-325] 1 tab PO Q6HR PRN #20 tab PRN Reason: Pain Discharge Medication List Calcitriol 0.25 mcg PO BID 06/13/16 [History] Enalapril [Vasotec] 5 mg PO DAILY 06/13/16 [History] Ergocalciferol (Vitamin D2) [Vitamin D2] 50,000 unit PO Q30D 06/13/16 [History] Fexofenadine HCl [Aishwarya Allergy] 180 mg PO DAILY PRN 06/13/16 [History] Furosemide [Lasix] 20 mg PO Q48H 06/13/16 [History] Lansoprazole 30 mg PO DAILY 06/13/16 [History] Metoprolol Succinate [Toprol XL] 100 mg PO BID 06/13/16 [History] Oxybutynin Chloride [Ditropan] 5 mg PO BID 06/13/16 [History] Ranitidine HCl [Zantac] 75 mg PO DAILY PRN 06/13/16 [History] Turmeric Root Extract [Turmeric] 500 mg PO DAILY 06/13/16 [History] traMADol HCL [Ultram] 100 mg PO Q6H PRN 06/13/16 [History] Amoxic-Pot Clav 875-125Mg [Augmentin 875-125] 1 tab PO Q12HR #14 tablet [Rx] HYDROcodone/APAP 5-325MG [Watkins 5-325] 1 tab PO Q6HR PRN #20 tab 06/16/16 [Rx] Follow up Appointment(s)/Referral(s): Deonna Duran MD [STAFF PHYSICIAN] - 1 Week Rogelio Manuel DO [Primary Care Provider] - 1-2 days Activity/Diet/Wound Care/Special Instructions: Regular diet AMbulate as tolerated Use incentive spirometer as directed No driving on pain medications or when having pain May shower in 24 hours No heavy liftin more than 20 lbs for 6 weeks Discharge Disposition: HOME SELF-CARE
--- NOTE | 2016-06-17 12:57 | P.PN ---
Subjective 71-year-old female who presented on the day of admission to the emergency room on the with a chief complaint of developing right upper quadrant abdominal pain onset 4 days prior. Patient stated that she woke up Friday morning around 2:30 in the morning with sharp intractable right upper quadrant pain. Patient stated that she thought it was something she ate. She stated that there was a sensation of nausea did not have an emesis. Patient stated the pain continued to persist. Patient stated that she did see her primary care provider in the office and was sent for CAT scan CAT scan was done on the it did show cholelithiasis. Patient stated that she was advised to come to the emergency room to be admitted. Patient also stated that she felt feverish with chills and took her temperature was noticed to have a fever. In the emergency room the temp was 100.6. With a white count of 9.9. Additionally the patient was seen in the emergency room did undergo a ultrasound to evaluate the right upper quadrant pain. The ultrasound did show evidence of fluid consistent with acute cholecystitis. The temp this morning is 98.2. Patient states has not had prior episodes. Patient states has not had an intolerant to spicy or fatty foods in the past. Patient states there has been no frequent stooling. Or change in bowel habits. Patient underwent laparoscopic cholecystectomy for an acute gangrenous cholecystitis on June 15. Patient developed no postop events. on the was felt to be medically stable and appropriate proceed with a discharge to home. The Marshall-Francois drain was removed on June 17. Pain medication was effective for pain control Objective - Vital Signs Vital signs: Vital Signs Temp 98.3 F 06/17/16 07:51 Pulse 71 06/17/16 07:51 Resp 16 06/17/16 07:51 BP 135/98 06/17/16 07:51 Pulse Ox 99 06/17/16 07:51 Intake & Output 06/16/16 06/17/16 06/17/16 18:59 06:59 18:59 Intake Total 360 450 Output Total 20 50 Balance 340 400 Intake: Intake, IV Titration 50 Amount Piperacillin-Tazobactam 3 50 .375 gm In Dextrose/Water 1 50ml.bag @ 12.5 mls/hr IVPB Q8H [facility] Rx#: [id number] Oral 360 400 Output: Drainage 20 50 Right Abdomen 20 50 Other: Voiding Method Toilet Toilet # Voids 2 3 - Exam Physical exam 71-year-old female resting comfortably in bed there's been no new events pleasant cooperative oriented 3 Lungs essentially clear adequate air movement Heart S1-S2 audible regular Abdomen soft not distended slight surgical tenderness bowel tones present scant amount of serous noted in the Marshall-Francois drain no nausea no vomiting no difficulty in urinating Extremities no edema noted - Labs CBC & Chem 7: 06/17/16 06:54 06/17/16 06:50 Labs: Abnormal Lab Results - Last 24 Hours (Table) 06/17/16 06/17/16 Range/Units 06:50 06:54 RBC 3.34 L (3.80-5.40) m/uL Hgb 10.5 L (11.4-16.0) gm/dL Hct 31.5 L (34.0-46.0) % Lymphocytes # 0.8 L (1.0-4.8) k/uL Sodium 146 H (137-145) mmol/L Chloride 110 H (98-107) mmol/L Glucose 107 H (74-99) mg/dL Total Protein 4.8 L (6.3-8.2) g/dL Albumin 2.5 L (3.5-5.0) g/dL Assessment and Plan Plan: Impression Present on admission right upper quadrant pain febrile nausea suspect due to acute cholecystitis Ultrasound of the gallbladder on June 13 gallstones bowel wall thickening consistent with acute on chronic cholecystitis no dilated ducts Hypertension essential controlled History of osteoarthritis CAT scan of the abdomen pelvis done on the cholelithiasis Present on admission elevated total bilirubin Status post June 15 laparoscopic cholecystectomy with large gallstones Acutely inflamed gangrenous cholecysitits with large gallstones.Acutely inflamed gangrenous cholecysitits with large gallstones. Present on admission mild Hyponatremia resolved Essential hypertension Primary osteoarthritis multiple joints bilateral Hyperbilirubinemia recovered Plan From a surgical perspective patient is felt to be appropriate to be discharged home follow-up in outpatient setting as directed Pain control Resume home meds as appropriate DVT and GI prophylaxis The above dictated assessment and findings were discussed with dr duran . Impression and the plan of care have been dictated as directed. Christi Bailey nurse practitioner acting as a scribe for dr duran
[2016-06-18] MEDS ORDERED: PANTOPRAZOLE 40 MG TABLET PO SCH (07:30)
--- NOTE | 2016-06-18 10:41 | DS ---
DATE OF ADMISSION: 06/13/2016 DATE OF DISCHARGE: 06/17/2016 FINAL DIAGNOSES: 1. Acute gangrenous cholecystitis with gallstones. 2. Hyponatremia, suspect hyposmolar. 3. Essential hypertension. 4. Primary osteoarthritis of multiple joints bilateral. 5. Hyperbilirubinemia from gallstones. 6. Hypoalbuminemia as an acute phase reactant. PROCEDURE: Laparoscopic cholecystectomy. HOSPITAL COURSE: This patient presented with gangrenous cholecystitis and gallstones. Underwent laparoscopic cholecystectomy. Drainage tube had to be placed, doing better by time of discharge, up and about, seen by Dr. Padilla and Dr. Johnny Robb from GI. Dr. Padilla cleared the patient for today. Patient's diet has been advanced. On exam abdomen soft, mild tenderness, bowel sounds are present. Patient is afebrile and normal white count. DISCHARGE MEDICATIONS: 1. Calcitrol 0.25 mcg p.o. b.i.d. 2. Vasotec 5 mg p.o. daily. 3. Vitamin D2 fifty thousand units p.o. every 30 days. 4. Aishwarya 180 mg p.o. daily p.r.n. 5. Lasix 20 mg p.o. 48 hours. 6. Lansoprazole 30 mg p.o. daily. 7. Toprol-XL 100 mg p.o. b.i.d. 8. Ditropan 5 mg p.o. b.i.d. 9. Tumeric 500 mg p.o. daily. 10. Augmentin 875 one tablet p.o. q.12 fourteen tablets. 11. [place] 5 one tablet q.6 p.r.n. DIET: Soft, bland, low-fat. Surgical postop orders per Dr. Padilla. Follow up with Dr. Padilla on 06/24/2016. Follow up with Dr. Manuel in one week. DC planning more than 35 minutes.
== END 2016-06-17 15:53 | disposition home or self-care (01) | DRG 418 ==
LOC: EC 17:32 → 3SUR 22:02
PROVIDERS: ADMIT Hospitalist; ATTEND Hospitalist
PROC: 0FT44ZZ Resection of Gallbladder, Percutaneous Endoscopic Approach (ICD-10-PCS; principal; 2016-06-15 13:00)
DX: K80.12 Calculus of gallbladder with acute and chronic cholecystitis without obstruction (principal); E87.1 Hypo-osmolality and hyponatremia; R50.9 Fever, unspecified; E88.09 Other disorders of plasma-protein metabolism, not elsewhere classified; I10 Essential (primary) hypertension; R11.2 Nausea with vomiting, unspecified; K66.0 Peritoneal adhesions (postprocedural) (postinfection); R74.8 Abnormal levels of other serum enzymes; M19.91 Primary osteoarthritis, unspecified site; Z79.899 Other long term (current) drug therapy; Z96.653 Presence of artificial knee joint, bilateral; Z82.49 Family history of ischemic heart disease and other diseases of the circulatory system; Z88.6 Allergy status to analgesic agent; Z91.02 Food additives allergy status; Z91.018 Allergy to other foods; Z79.891 Long term (current) use of opiate analgesic; Z90.710 Acquired absence of both cervix and uterus; Z80.42 Family history of malignant neoplasm of prostate; Z87.448 Personal history of other diseases of urinary system
CPT/HCPCS: 36415; 74177; 76705; 80053; 81003; 82150; 82565; 83605; 83690; 84520; 85025; 88304; 93005; 96361; 96365; 96375; 96376; 99285

== ENCOUNTER → 2016-06-13 | Outpatient (CLI) | payer MEDICARE ==
[2016-06-13 15:40] LABS: Blood Urea Nitrogen 16 mg/dL (7-17); Non-African American GFR(MDRD) >60 (>60 ml/min/1.73 sqM)
--- NOTE | 2016-06-13 16:47 | CT ---
EXAMINATION TYPE: CT abdomen pelvis w con DATE OF EXAM: 06/13/2016 4:34 PM COMPARISON: NONE INDICATION: RLQ pain DLP: 732.6 mGycm, Automated exposure control for dose reduction was used. CONTRAST: 100 mL of Omnipaque 300. Study performed with Oral Contrast TECHNIQUE: Axial images were obtained from above the diaphragm to the pubic rami in the axial plane a t 5 mm thick sections. Reconstructed images are reviewed on the computer in the coronal plane. FINDINGS: Limited CT sections are obtained the lung bases. Some mild areas of atelectasis are likely present a t the lung bases.. Reflux is in the distal esophagus. There is a hiatal hernia present. CT ABDOMEN: Liver: Normal Spleen: Normal Pancreas: Normal Adrenal glands: The adrenal glands are normal. Gallbladder: Large gallstones are present. Kidneys: No masses are evident. No hydronephrosis is present. No cysts are present. Delayed images were obtained through the kidneys, which remain unremarkable. Aorta: Normal Inferior vena cava: Normal. CT PELVIS: Loops of bowel within the abdomen and pelvis are normal. Oral contrast extends to the distal smal l bowel loops. Fecal debris is in the sigmoid colon. Appendix: Not identified Urinary bladder: Normal Genitourinary structures: Uterus and ovaries are not identified. Osseous structures: No suspicious lytic or sclerotic lesions. Advanced degenerative changes are at th e right hip. Sacroiliac joint degenerative changes are present. Facet hypertrophy is present. Spondyl osis is present. IMPRESSIONS: 1. Cholelithiasis. 2. Degenerative joint changes discussed above the right hip appears especially degenerative. 3. Hiatal hernia 4. Gastroesophageal reflux 5. Bibasilar atelectasis
== END | disposition home or self-care (01) ==
LOC: RADCTMAIN 15:09
PROVIDERS: ATTEND Nurse Practitioner Family
DX: K80.20 Calculus of gallbladder without cholecystitis without obstruction (principal); K44.9 Diaphragmatic hernia without obstruction or gangrene; K21.9 Gastro-esophageal reflux disease without esophagitis; R50.9 Fever, unspecified
CPT/HCPCS: 82565; 84520; 74177; 36415; Q9967

== ENCOUNTER → 2016-09-23 | Outpatient (CLI) | payer MEDICARE ==
[2016-09-23 09:57] LABS: Basophils % (A) 0 %; CH 30.9; CHCM 32.6; Eosinophils # (A) 0.1 k/uL (0-0.7); Eosinophils % (A) 3 %; HCT 36.9 % (34.0-46.0); HDW 2.24; HGB 12.2 gm/dL (11.4-16.0); Luc # (Auto) 0.09; Luc % (Auto) 2; Lymphocytes # (A) 0.8 k/uL (1.0-4.8); Lymphocytes % (A) 19 %; MCH 31.5 pg (25.0-35.0); MCV 95.2 fL (80.0-100.0); Mean Platelet Volume 7.5; Monocytes # (A) 0.4 k/uL (0-1.0); Monocytes % (A) 9 %; Neutrophils # (A) 2.8 k/uL (1.3-7.7); Neutrophils % (A) 66 %; RBC 3.88 m/uL (3.80-5.40); RDW 13.3 % (11.5-15.5); WBC 4.2 k/uL (3.8-10.6); WBC (Perox) 4.14
[2016-09-23 10:18] LABS: Appearance,Urine Clear (Clear); Bilirubin,Urine Negative (Negative); Glucose,Urine (UA) Negative (Negative); Ketones,Urine Negative (Negative); Leukocyte Esterase,Urine Negative (Negative); Nitrite,Urine Negative (Negative); Protein,Urine Negative (Negative); Specific Gravity,Urine 1.012 (1.001-1.035); UA Billing (MACRO vs. MICRO) CHEM; Urobilinogen,Urine <2.0 mg/dL (<2.0)
[2016-09-23 13:59] LABS: Anion Gap 9 mmol/L; Blood Urea Nitrogen 18 mg/dL (7-17); Calcium 10.2 mg/dL (8.4-10.2); Carbon Dioxide 27 mmol/L (22-30); Chloride 106 mmol/L (98-107); Glucose 81 mg/dL (74-99); Iron 76 ug/dL (37-170); Magnesium 2.1 mg/dL (1.6-2.3); Non-African American GFR(MDRD) >60 (>60 ml/min/1.73 sqM); Potassium 4.4 mmol/L (3.5-5.1); Sodium 142 mmol/L (137-145)
[2016-09-23 14:08] LABS: % Iron Saturation 24.9 % (20-50); Total Iron Binding Capacity 305 ug/dL (265-497)
== END | disposition home or self-care (01) ==
LOC: LABWHC1 09:03
PROVIDERS: ATTEND Family Medicine
DX: N18.3 Chronic kidney disease, stage 3 (moderate) (principal); D63.1 Anemia in chronic kidney disease; E83.39 Other disorders of phosphorus metabolism; N39.0 Urinary tract infection, site not specified; R80.9 Proteinuria, unspecified
CPT/HCPCS: 36415; 80048; 81003; 82306; 82570; 82728; 83540; 83550; 83735; 83970; 84156; 85025

== ENCOUNTER → 2017-04-01 | Outpatient (CLI) | payer MEDICARE ==
[2017-04-01 08:54] LABS: HCT 42.2 % (34.0-46.0); HGB 13.7 gm/dL (11.4-16.0); MCH 30.3 pg (25.0-35.0); MCHC 32.4 g/dL (31.0-37.0); MCV 93.5 fL (80.0-100.0); Mean Platelet Volume 6.8; Platelet Count 229 k/uL (150-450); RBC 4.51 m/uL (3.80-5.40); RDW 12.4 % (11.5-15.5); WBC 6.6 k/uL (3.8-10.6)
[2017-04-01 09:05] LABS: Anion Gap 10 mmol/L; Blood Urea Nitrogen 29 mg/dL (7-17); Calcium 10.6 mg/dL (8.4-10.2); Carbon Dioxide 29 mmol/L (22-30); Chloride 107 mmol/L (98-107); Glucose 97 mg/dL (74-99); Magnesium 2.2 mg/dL (1.6-2.3); Potassium 4.9 mmol/L (3.5-5.1); Sodium 146 mmol/L (137-145)
[2017-04-01 10:11] LABS: Creatinine,Urine Random 134.3 mg/dL
[2017-04-01 15:31] LABS: Appearance,Urine Clear (Clear); Bacteria,Urine Rare /hpf; Bilirubin,Urine Negative (Negative); Blood,Urine Small (Negative); Calcium Oxalate Crystals,Urine Moderate /hpf; Color,Urine Yellow; Glucose,Urine (UA) Negative (Negative); Ketones,Urine Negative (Negative); Leukocyte Esterase,Urine Negative (Negative); Mucus,Urine Rare /hpf; Nitrite,Urine Negative (Negative); PH, Urine 5.5 (5.0-8.0); Protein,Urine Negative (Negative); RBC,Urine 4 /hpf (0-5); Specific Gravity,Urine 1.022 (1.001-1.035); Urobilinogen,Urine <2.0 mg/dL (<2.0); WBC,Urine 4 /hpf (0-5)
[2017-04-01 16:55] LABS: Vitamin D 25 Hydroxy 35.9 ng/mL (30.0-100.0)
== END | disposition home or self-care (01) ==
LOC: LABWHC1 08:32
PROVIDERS: ATTEND Nurse Practitioner Family
DX: E55.9 Vitamin D deficiency, unspecified (principal); D50.9 Iron deficiency anemia, unspecified; N39.0 Urinary tract infection, site not specified; N25.81 Secondary hyperparathyroidism of renal origin; N18.3 Chronic kidney disease, stage 3 (moderate)
CPT/HCPCS: 36415; 80048; 81001; 82306; 82570; 82728; 83540; 83550; 83735; 83970; 84156; 85027

== ENCOUNTER → 2017-04-24 | Outpatient (CLI) | payer MEDICARE ==
[2017-04-24 09:51] LABS: Anion Gap 9 mmol/L; Blood Urea Nitrogen 19 mg/dL (7-17); Calcium 10.5 mg/dL (8.4-10.2); Carbon Dioxide 31 mmol/L (22-30); Chloride 107 mmol/L (98-107); Glucose 93 mg/dL (74-99); Potassium 5.2 mmol/L (3.5-5.1); Sodium 147 mmol/L (137-145)
== END | disposition home or self-care (01) ==
LOC: LABWHC1 09:08
PROVIDERS: ATTEND Nurse Practitioner Family
DX: N18.3 Chronic kidney disease, stage 3 (moderate) (principal)
CPT/HCPCS: 36415; 80048

== ENCOUNTER → 2017-05-15 | Outpatient (CLI) | payer MEDICARE ==
[2017-05-15 10:18] LABS: Calcium 10.1 mg/dL (8.4-10.2); Potassium 4.9 mmol/L (3.5-5.1)
== END | disposition home or self-care (01) ==
LOC: LABWHC1 09:34
PROVIDERS: ATTEND Nurse Practitioner Family
DX: D64.9 Anemia, unspecified (principal)
CPT/HCPCS: 36415; 80048

== ENCOUNTER → 2018-03-18 | Outpatient (CLI) | payer MEDICARE ==
--- NOTE | 2018-03-21 13:09 | MM ---
Reason for exam: screening (asymptomatic). Last mammogram was performed 4 years and 2 months ago. History: Patient is postmenopausal and is nulliparous. MG Screening Mammo w CAD Bilateral CC and MLO view(s) were taken. Prior study comparison: January 13, 2014, bilateral MG screening mammo w CAD. August 11, 2012, bilateral digital screening mammo w/CAD. The breast tissue is heterogeneously dense. This may lower the sensitivity of mammography. There are bilateral benign round calcifications including bilateral dermal calcifications. No significant changes when compared with prior studies. ASSESSMENT: Benign, BI-RAD 2 RECOMMENDATION: Routine screening mammogram of both breasts in 1 year.
== END ==
LOC: RADMAMWWP 14:32
PROVIDERS: ATTEND Family Medicine
DX: Z12.31 Encounter for screening mammogram for malignant neoplasm of breast (principal)
CPT/HCPCS: 77067

== ENCOUNTER → 2019-01-06 | Outpatient (CLI) | payer MEDICARE ==
--- NOTE | 2019-01-06 15:56 | US ---
EXAMINATION TYPE: US kidneys/renal and bladder DATE OF EXAM: 01/06/2019 COMPARISON: NONE CLINICAL HISTORY: R31.9 HEMATURIA. gross hematuria, no pain EXAM MEASUREMENTS: Right Kidney: 9.2 x 4.0 x 4.0 cm Left Kidney: 9.7 x 4.1 x 4.8 cm Right Kidney: No hydronephrosis or masses seen Left Kidney: No hydronephrosis or masses seen Bladder: not fully distended but jets seen Bilateral Jets seen: Yes There is no evidence for hydronephrosis at this point in time. No nephrolithiasis is seen. No dar s are identified. The urinary bladder is anechoic. Bilateral ureteral jets are seen. IMPRESSION: Unremarkable renal ultrasound. No sonographic evidence of cholelithiasis nor acute cholec ystitis. Urinary bladder is incompletely distended and suboptimally evaluated. If there is further co ncern in this patient with hematuria CT urogram could be considered.
== END | disposition home or self-care (01) ==
LOC: RADUSWWP 15:23
PROVIDERS: ATTEND Internal Medicine Nephrology
DX: N32.89 Other specified disorders of bladder (principal)
CPT/HCPCS: 76770

== ENCOUNTER 2019-03-15 20:55 | Emergency (ER) | payer MEDICARE ==
[2019-03-15 21:18] VITALS: TEMP 97.6
--- NOTE | 2019-03-15 22:03 | ED ---
Female Urogenital HPI - General Chief complaint: Urogenital Stated complaint: S/P bladder surgery Time Seen by Provider: 03/15/19 21:42 Source: patient Mode of arrival: ambulatory Limitations: no limitations - History of Present Illness Initial comments: This patient is a 74-year-old woman who presents with complaint that her Cao catheter has not been draining. Patient states that she had what sounds like a cystoscopic tumor resection by the urologists in the clinic today. She states that she went home and then in the afternoon noticed that urine seem to be passing around the catheter and that there was none going into the catheter. She called the on-call number and was instructed to drink 2 large glasses of water and see if any urine went into the bag. She states that she continued to have some leakage around the catheter but none accumulated in the bag so she presents here to be evaluated. She does only have some minimal suprapubic discomfort. No fever or chills. No gross hematuria. No nausea or vomiting. No change in bowel movements. She does report history of constipation at baseline. MD Complaint: other (Obstructed Cao catheter.) -: hour(s) Location: suprapubic Radiation: non-radiating Severity: mild Quality: other (Pressure) Consistency: constant Improves with: none Worsens with: none Patient : No - Related Data Home Medications Medication Instructions Recorded Confirmed Calcitriol 0.25 mcg PO BID 06/13/16 06/13/16 Enalapril [Vasotec] 5 mg PO DAILY 06/13/16 06/13/16 Ergocalciferol (Vitamin D2) 50,000 unit PO Q30D 06/13/16 06/13/16 [Vitamin D2] Fexofenadine HCl [Aishwarya Allergy] 180 mg PO DAILY PRN 06/13/16 06/13/16 Furosemide [Lasix] 20 mg PO Q48H 06/13/16 06/13/16 Lansoprazole 30 mg PO DAILY 06/13/16 06/13/16 Metoprolol Succinate [Toprol XL] 100 mg PO BID 06/13/16 06/13/16 Oxybutynin Chloride [Ditropan] 5 mg PO BID 06/13/16 06/13/16 Turmeric Root Extract [Turmeric] 500 mg PO DAILY 06/13/16 06/13/16 Previous Rx's Medication Instructions Recorded Amoxic-Pot Clav 875-125Mg 1 tab PO Q12HR #14 tablet 06/16/16 [Augmentin 875-125] HYDROcodone/APAP 5-325MG [Jena 1 tab PO Q6HR PRN #20 tab 06/16/16 5-325] Allergies Allergy/AdvReac Type Severity Reaction Status Date / Time banana Allergy Anaphylaxis Verified 03/15/19 21:13 monosodium glutamate [MSG] Allergy Anaphylaxis Verified 03/15/19 21:13 ibuprofen [From Motrin] AdvReac Unknown Verified 03/15/19 21:13 Review of Systems ROS Statement: Those systems with pertinent positive or pertinent negative responses have been documented in the HPI. ROS Other: All systems not noted in ROS Statement are negative. Constitutional: Denies: fever, chills Respiratory: Denies: cough, dyspnea Cardiovascular: Denies: chest pain, palpitations, edema Gastrointestinal: Reports: as per HPI, abdominal pain, constipation. Denies: nausea, vomiting, diarrhea, melena, hematochezia Genitourinary: Reports: as per HPI. Denies: dysuria, frequency, hematuria Musculoskeletal: Denies: back pain Skin: Denies: rash Neurological: Denies: headache Past Medical History Past Medical History: Hypertension, Osteoarthritis (OA) History of Any Multi-Drug Resistant Organisms: None Reported Past Surgical History: Hysterectomy, Joint Replacement Additional Past Surgical History / Comment(s): knee replacements Past Anesthesia/Blood Transfusion Reactions: No Reported Reaction Past Psychological History: No Psychological Hx Reported Smoking Status: Never smoker Past Alcohol Use History: Occasional Past Drug Use History: None Reported - Past Family History Mother Family Medical History: Congestive Heart Failure (CHF), Osteoarthritis (OA), Rheumatoid Arthritis (RA) Father Family Medical History: Cancer Additional Family Medical History / Comment(s): prostate ca General Exam Limitations: no limitations General appearance: alert, in no apparent distress Head exam: Present: atraumatic, normocephalic Eye exam: Present: normal appearance. Absent: scleral icterus, conjunctival injection Respiratory exam: Present: normal lung sounds bilaterally. Absent: respiratory distress, wheezes, rales, rhonchi, stridor Cardiovascular Exam: Present: regular rate, normal rhythm, normal heart sounds. Absent: systolic murmur, diastolic murmur, rubs, gallop GI/Abdominal exam: Present: soft. Absent: distended, tenderness, guarding, rebound, rigid, mass, hernia Extremities exam: Present: normal inspection, normal capillary refill. Absent: pedal edema, calf tenderness Back exam: Present: normal inspection. Absent: CVA tenderness (R), CVA tenderness (L) Skin exam: Present: warm, dry, intact, normal color. Absent: rash Course Vital Signs 03/15/19 21:13 Temperature 97.6 F Pulse Rate 74 Respiratory 16 Rate Blood Pressure 145/78 O2 Sat by Pulse 97 Oximetry Disposition Clinical Impression: Obstructed Cao catheter Disposition: HOME SELF-CARE Condition: Good Instructions (If sedation given, give patient instructions): Cao Catheter Placement and Care (ED) Is patient prescribed a controlled substance at d/c from ED?: No Referrals: Rogelio Manuel DO [Primary Care Provider] - 1-2 days
[2019-03-15 23:04] VITALS: BP 136/74; PULSE 71; RESP 18
== END 2019-03-15 23:10 | disposition home or self-care (01) ==
LOC: EC 20:55
DX: T83.091A Other mechanical complication of indwelling urethral catheter, initial encounter (principal); I10 Essential (primary) hypertension; Z79.899 Other long term (current) drug therapy; Z88.6 Allergy status to analgesic agent; Z91.018 Allergy to other foods; Z91.02 Food additives allergy status; Z96.653 Presence of artificial knee joint, bilateral
CPT/HCPCS: 99283

== ENCOUNTER → 2020-01-05 | Outpatient (CLI) | payer MEDICARE ==
[2020-01-05 16:51] LABS: HGB 12.5 gm/dL (11.4-16.0); MCH 31.6 pg (25.0-35.0); MCHC 32.1 g/dL (31.0-37.0); MCV 98.4 fL (80.0-100.0); Platelet Count 191 k/uL (150-450); RBC 3.97 m/uL (3.80-5.40); RDW 12.8 % (11.5-15.5); WBC 5.8 k/uL (3.8-10.6)
[2020-01-05 16:57] LABS: Appearance,Urine Clear (Clear); Bilirubin,Urine Negative (Negative); Blood,Urine Negative (Negative); Color,Urine Colorless; Glucose,Urine (UA) Negative (Negative); Hyaline Casts,Urine 14 /lpf (0-2); Ketones,Urine Negative (Negative); Leukocyte Esterase,Urine Trace (Negative); Mucus,Urine Rare /hpf; Nitrite,Urine Negative (Negative); Protein,Urine Negative (Negative); RBC,Urine <1 /hpf (0-5); Specific Gravity,Urine 1.011 (1.001-1.035); Urobilinogen,Urine <2.0 mg/dL (<2.0); WBC,Urine 2 /hpf (0-5)
[2020-01-05 16:59] LABS: Albumin 4.4 g/dL (3.5-5.0); Calcium 10.5 mg/dL (8.4-10.2); Total Protein 6.8 g/dL (6.3-8.2)
[2020-01-05 17:03] LABS: INR 0.9 (<1.2); Partial Thromboplastin Time 32.7 sec (22.0-30.0); Prothrombin Time 9.8 sec (9.0-12.0)
== END | disposition home or self-care (01) ==
LOC: LABPAT 15:32
PROVIDERS: ATTEND Orthopaedic Surgery
DX: Z01.818 Encounter for other preprocedural examination (principal); Z01.812 Encounter for preprocedural laboratory examination; M19.90 Unspecified osteoarthritis, unspecified site
CPT/HCPCS: 36415; 80053; 81001; 85027; 85610; 85730; 87070; 93005

== ENCOUNTER 2020-01-11 05:51 | Day surgery (SDC) | payer MEDICARE ==
[2020-01-10 08:58] VITALS: BMI 31.1
[~2020-01-11 05:51] MED LIST: ACETAMINOPHEN TAB 500 MG TAB PO ONE; DEXAMETHASONE SOD PHOSPHATE 4 MG/ML 1 ML VIAL IV ONE; GABAPENTIN 300 MG CAP PO ONE; HYDROmorphone 0.5 MG/0.5 ML SYRINGE IVP PRN; LIDOCAINE 1% (10MG/ML) FOR IV START INTRADERMA PRN; MELOXICAM 7.5 MG TAB PO ONE; MIDAZOLAM 2 MG/2 ML VIAL IV PRN; ONDANSETRON 4 MG/2 ML VIAL IVP ONE; TRANEXAMIC ACID 1,000 MG in SODIUM CHLORIDE 0.9% 100 ML IVPB ONE
[2020-01-11] MEDS ORDERED: ROPIVACAINE 246.25 MG, EPINEPHrine 0.5 MG, KETOROLAC 30 MG, cloNIDine HCL/PF 80 MCG, WA... MISCELLANE ONE ×5 (06:00)
[2020-01-11] MEDS ORDERED: LACTATED RINGERS 1,000 ML IV ONE (06:21)
[2020-01-11] MEDS ORDERED: PROPOFOL 10 MG/ML 20 ML VIAL IV ONE (06:51)
[2020-01-11] MEDS ORDERED: ELECTROLYTE-R (PH 7.4) 1,000 ML IV.SOLN IV ONE (06:51)
[2020-01-11] MEDS ORDERED: SUCCINYLCHOLINE CHLORIDE 100 MG/5 ML SYR IV ONE (06:51)
[2020-01-11] MEDS ORDERED: SODIUM CHLORIDE 0.9% 100 ML BAG ONE (06:51)
[2020-01-11] MEDS ORDERED: fentaNYL (PF) 50 MCG/ML 2 ML AMP ONE (06:51)
[2020-01-11] MEDS ORDERED: SODIUM CHLORIDE 0.9% IRRIG 1,000 ML BTL IRRIGATION ONE (06:51)
[2020-01-11] MEDS ORDERED: LIDOCAINE 1% INJ 10MG/ML (20 ML MDV) ONE (06:51)
[2020-01-11] MEDS ORDERED: ePHEDrine SULFATE/0.9% NACL/PF 50 MG/5 ML SYRINGE IV ONE (06:51)
[2020-01-11] MEDS ORDERED: HYDROmorphone (PF) 1 MG/ML ONE (06:51)
[2020-01-11] MEDS ORDERED: TRANEXAMIC ACID 1,000 MG/10 ML VIAL ONE (06:51)
[2020-01-11] MEDS ORDERED: MIDAZOLAM 2 MG/2 ML VIAL ONE (06:51)
[2020-01-11] MEDS ORDERED: ceFAZolin 3,000 MG in SODIUM CHLORIDE 0.9% IRRIGATIO 3,000 ML IRRIGATION ONE (06:56)
[2020-01-11] MEDS ORDERED: HYDROcodone/APAP 5-325MG 1 EACH TAB PO PRN (07:01)
[2020-01-11] MEDS ORDERED: NALOXONE 0.4 MG/ML 1 ML VIAL IV PRN (07:01)
[2020-01-11] MEDS ORDERED: ONDANSETRON 4 MG/2 ML VIAL IVP PRN (07:01)
[2020-01-11] MEDS ORDERED: MAGNESIUM HYDROXIDE 2,400 MG/10 ML CUP PO PRN (07:01)
[2020-01-11] MEDS ORDERED: HYDROmorphone 0.5 MG/0.5 ML SYRINGE IVP PRN ×3 (07:01)
--- NOTE | 2020-01-11 08:26 | P.OP ---
Date of Procedure: 01/11/20 Preoperative Diagnosis: Severe osteoarthritis right hip Postoperative Diagnosis: Severe osteoarthritis right hip Procedure(s) Performed: Right total hip arthroplasty with a direct anterior approach Implants: Kimbrough and nephew Polarstem size 5 standard Kimbrough [employer] Nephew R3, 3 hole acetabular shell, 48 mm [employer]imb[employer] Nephew reflection 6.5 mm cancellus screw, 20 mm 2 [employer]imb[employer]hew R3, XLPE 20 acetabular liner Kimbrough [employer] Nephew Oxinium femoral head 32 m, +0 All components were press-fit. The articulation is Oxinium on polyethylene. Anesthesia: GETA Surgeon: Michele Cotto Sheriff Sergeant #1: Jo-Ann Sargent Estimated Blood Loss (ml): 120 (60 mL returned with Cell Saver) Pathology: other (Femoral head) Condition: stable Disposition: PACU Indications for Procedure: After failure of conservative treatment we discussed the surgical and nonsurgical treatment options at length. Patient wishes to proceed with a total hip arthroplasty with a direct anterior approach. Complications specific to this procedure were discussed at length, including but not limited to infection, leg length discrepancy, dislocation, and nerve injury. Covid-19 was also discussed at length with the patient, and they are aware of the current policies and procedures. The patient was given the option of delaying surgery, but they elect to proceed knowing these risks. Patient is aware of all these complications and informed consent was obtained Operative Findings: The operative findings are consistent with severe osteoarthritis of the right hip Description of Procedure: Patient was seen and evaluated in the preoperative area, consent was reviewed, and the surgical site was marked with a skin marker. Patient was then brought to the operating room and given prophylactic antibiotics intravenously. 1 g of Tranexamic acid was also given. A general anesthetic was administered by the anesthesia department. The patient was then placed on the [place] table with the bony prominences well-padded. The hip area was then prepped and draped in usual sterile fashion. A universal timeout was then performed, which confirmed the patient's name, surgical site, ALLERGIES, and procedure being performed. Next the incision site was located at 1 cm distal and 1 cm lateral to the anterior superior iliac spine. The skin and subcutaneous tissues were sharply incised. Incision was carefully dissected down to the fascia overlying the tensor fascia christiano muscle. This fascia was then incised in line with the incision. Next, using blunt finger dissection, the tensor fascia christiano muscle was dissected off its investing fascia. The muscle was then carefully retracted laterally with a cobra retractor over the lateral neck of the femur. Next, the circumflex vessels were identified and cauterized using the AquaMantis device. The anterior hip capsule was then exposed. The capsule was then opened and an inverted T fashion. Cobra retractors were then placed intracapsularly. The proximal femur was then visualized. The femoral neck was then osteotomized appropriate level above the lesser trochanter. Small amount of traction was placed with the [place] table. A small wedge of bone was then removed from the remaining femoral head. Next, using a corkscrew femoral head was easily removed from the acetabulum. On gross visual inspection, the femoral head had complete loss of articular cartilage in multiple periarticular osteophytes. Attention was then turned to the acetabulum. the acetabulum was exposed and any remaining labrum was excised. Sequential reaming of the acetabulum was performed using fluoroscopic guidance. When the appropriate size was reached, a trial was then placed. The position and fit of the trial was checked with fluoroscopy. The trial was then removed. Then, using fluoroscopic guidance, the final implant was impacted at 20 of anteversion and 40 of abduction, and fully seated in the acetabulum. 2 screws were then placed in the acetabulum. Again fluoroscopy was used to check position of the screws. Next, the liner was then impacted, with a 20 elevated liner located in the anterior superior quadrant. Component locking was confirmed. Attention was then directed to the femur. With the aid of the [place] table, the femur was externally rotated to approximately 130, extended, and abducted under the opposite leg. A side hook was then placed under the proximal femur, and the side hook elevator was used to elevate the proximal femur. Retractors were then placed. A capsular release was performed, as well as a release of the conjoined tendon, which afforded excellent visualization of the proximal femur. Next, a box osteotome was used to lateralize the proximal femur. A displayer merchandise was then used to locate the femoral canal. Sequential broaching was then performed with appropriate size which afforded excellent fixation in the proximal femur. A trial was then placed with appropriate head and neck, and the hip was gently reduced with the aid of the [place] table. Fluoroscopy was then used to check position of the components, as well as to ensure equal leg lengths. The hip was then gently dislocated and the trials were then removed. Final implants were then impacted and the hip was again reduced. Final fluoroscopic x-rays confirmed that the components were in anatomic position, as well as equal leg lengths. The hip was also taken through range of motion, and found to be stable. The hip was then copiously irrigated with antibiotic solution with pulsatile lavage. The hip was then irrigated with Irrisept solution. The soft tissues were then injected with a ropivacaine solution, which consisted of 246.25 mg of ropivacaine, 0.5 mg of epinephrine, 30 mg of Toradol, 80 g of clonidine, and 48.45 mL of sterile water, for a total of 100 mL of fluid injected. A second dose of 1 g of Tranexamic acid was also given. the fascia was then closed with 2-0 strata fix suture. The subcutaneous tissue was closed with 3-0 Vicryl. The subcuticular tissue was closed with 3-0 strata fix suture. The skin was then closed with Dermabond glue and a sterile silver dressing. The patient was then transferred to the recovery room in stable condition. The psychologist research assistant LISSY Ramos was required due to the complexity of surgery, and the need for skilled surgical training specialist for positioning, draping, exposure, retraction, and closure of the wound.
--- NOTE | 2020-01-11 08:31 | XR ---
EXAMINATION TYPE: XR Hip Limited RT, FL guidance operating room DATE OF EXAM: 01/11/2020 Comparison: None Clinical History: 74-year-old female Rt anterior hip assist Findings: 2 images during right hip total arthroplasty. FLUOROSCOPY Fluoroscopy time of 46 seconds was used during right hip total arthroplasty. 2 image/s document/s th e procedure. Impression: Fluoroscopy as above.
--- NOTE | 2020-01-11 09:00 | XR ---
EXAMINATION TYPE: XR Hip Limited RT DATE OF EXAM: 01/11/2020 Comparison: None Clinical History: 74-year-old female Status post hip surgery, assess surgical alignment Findings: Image shows placement of right total hip orthoplasty. Both acetabular cup and femoral stem components of the prosthesis are well seated without periprosthetic fracture. Alignment grossly anatomic. Scatt ered soft tissue air compatible with recent operation. Impression: Uncomplicated postoperative appearance right total hip arthroplasty.
[2020-01-11] MEDS: LACTATED RINGERS 1,000 ML IV SCH (10:23)
[2020-01-11] MEDS: HYDROcodone/APAP 5-325MG 1 EACH TAB PO PRN (12:40)
[2020-01-11] MEDS ORDERED: LORATADINE 10 MG TAB PO PRN (13:05)
[2020-01-11] MEDS: SODIUM CHLORIDE 0.9% 1,000 ML IV SCH ×2 (13:58→23:10)
[2020-01-11] MEDS: PANTOPRAZOLE 40 MG TABLET PO SCH ×2 (13:58→20:33)
[2020-01-11 18:34] LABS: Appearance,Urine Clear (Clear); Bilirubin,Urine Negative (Negative); Blood,Urine Negative (Negative); Color,Urine Yellow; Glucose,Urine (UA) Negative (Negative); Ketones,Urine 1+ (Negative); Leukocyte Esterase,Urine Negative (Negative); Nitrite,Urine Negative (Negative); PH, Urine 5.5 (5.0-8.0); Protein,Urine Trace (Negative); Specific Gravity,Urine 1.031 (1.001-1.035); Urobilinogen,Urine <2.0 mg/dL (<2.0)
[2020-01-11] MEDS: ASPIRIN 81 MG PO SCH (20:32)
[2020-01-11] MEDS: OXYBUTYNIN CHLORIDE 5 MG TAB PO SCH (20:33)
[2020-01-11] MEDS ORDERED: SENNOSIDES-DOCUSATE SODIUM 1 EACH TAB PO SCH (21:00)
[2020-01-11] MEDS ORDERED: METOPROLOL SUCCINATE (ER) 50 MG TAB.ER.24H PO SCH (21:00)
--- NOTE | 2020-01-11 21:52 | CONS ---
CONSULTATION DATE OF SERVICE: 01/11/2020 REASON FOR CONSULTATION: Advice regarding hypertension and other medical issues, requested by Dr. Cotto. HISTORY OF PRESENT ILLNESS: This 74-year-old woman with a past medical history of hypertension, GERD, DJD, blood clot in the left arm, varicose veins, being followed by Dr. Rogelio Manuel in the outpatient setting, was admitted after right total hip joint arthroplasty by Dr. Cotto. The patient had some minimal postoperative nausea. Otherwise, there is no history of any fever or rigors. No history of headache, loss of consciousness, chest pain, palpitations, hematochezia or melena at this time or shortness of breath. PAST MEDICAL HISTORY: History of GERD, hypertension, DJD, history of blood clot in the left arm, history of EGD and dilatation. MEDICATIONS: Tylenol Arthritis, Ditropan, omeprazole, Toprol-XL, Lasix, Aishwarya, vitamin D2, Vasotec. ALLERGIES: BANANA, MSG, MOTRIN. FAMILY HISTORY: Prostate cancer, bone cancer. SOCIAL HISTORY: No history of smoking. Occasional alcohol intake. REVIEW OF SYSTEMS: ENT: No diminished hearing. No diminished vision. CARDIOVASCULAR SYSTEM: No angina, palpitations. RESPIRATORY SYSTEM: No cough, hemoptysis. GI: No nausea, vomiting. : No dysuria or retention. NERVOUS SYSTEM: No numbness, weakness. ALLERGY/IMMUNOLOGY: No asthma, hayfever. MUSCULOSKELETAL: As mentioned earlier. HEMATOLOGY/ONCOLOGY: As mentioned earlier. ENDOCRINE: No history of diabetes, hypothyroidism. CONSTITUTIONAL: As mentioned earlier. DERMATOLOGY: Negative. RHEUMATOLOGY: Negative. PSYCHIATRY: As mentioned earlier. PHYSICAL EXAMINATION: Patient alert and oriented x3. Pulse 76, blood pressure 110/54, respirations 16, temperature normal, pulse ox 100% on 2 L. HEENT: Conjunctivae normal. Oral mucosa moist. NECK: No jugular venous distention. No carotid bruit. No lymph node enlargement. CARDIOVASCULAR SYSTEM: S1, S2 muffled. RESPIRATORY SYSTEM: Breath sounds diminished at the bases. No rhonchi. No crackles. ABDOMEN: Soft, non-tender. LEGS: Status post right total hip joint arthroplasty. NERVOUS SYSTEM: No focal deficit. SKIN: No ulcer, rash, bleeding. JOINTS: As mentioned earlier. LABS: Preoperative labs showed CBC within normal limits. Coags are normal. Chemistry shows creatinine of 1.1. ASSESSMENT: 1. Status post right total hip joint arthroplasty. 2. Mild postoperative nausea. 3. Possible chronic kidney disease as baseline. 4. Gastroesophageal reflux disease. 5. Hypertension. 6. History of degenerative joint disease. 7. History of deep venous thrombosis, left arm. 8. Varicose veins. 9. History of constipation. 10.History of sepsis in 2017. 11.History of vertigo. 12.History of cholecystectomy. 13.History of hysterectomy. 14.History of EGD with dilatation. 15.FULL CODE. RECOMMENDATIONS AND DISCUSSION: In this 74-year-old woman who presented with multiple complex medical issues, I recommend to continue the rest of the home medications. I would recommend DVT prophylaxis. Also recommend avoiding nephrotoxic medications. I would also recommend repeat CBC, BMP. Resume the home medications. I agree with IV fluids. Recommend close followup with Dr. Rogelio Manuel after discharge. Thank you, Dr. Cotto, for letting us participate in the care of this patient. MMODL / IJN: [id number] /
[2020-01-12] MEDS: LACTATED RINGERS 1,000 ML IV SCH (05:36)
[2020-01-12] MEDS: HYDROcodone/APAP 5-325MG 1 EACH TAB PO PRN (05:52)
[2020-01-12 07:36] LABS: Basophils % (A) 0 %; Eosinophils % (A) 0 %; HCT 27.7 % (34.0-46.0); Lymphocytes % (A) 14 %; MCH 31.8 pg (25.0-35.0); MCHC 32.9 g/dL (31.0-37.0); MCV 96.5 fL (80.0-100.0); Mean Platelet Volume 6.9; Monocytes # (A) 0.5 k/uL (0-1.0); Monocytes % (A) 8 %; Neutrophils # (A) 5.1 k/uL (1.3-7.7); Platelet Count 167 k/uL (150-450); RBC 2.87 m/uL (3.80-5.40); RDW 12.8 % (11.5-15.5); WBC 6.8 k/uL (3.8-10.6)
[2020-01-12 07:38] VITALS: BP 98/60; PULSE 54; RESP 18; TEMP 97.9
[2020-01-12 07:49] LABS: HGB 9.1 gm/dL (11.4-16.0)
[2020-01-12] MEDS: PANTOPRAZOLE 40 MG TABLET PO SCH (08:07)
[2020-01-12] MEDS: ASPIRIN 81 MG PO SCH (08:07)
[2020-01-12] MEDS: OXYBUTYNIN CHLORIDE 5 MG TAB PO SCH (08:07)
--- NOTE | 2020-01-12 08:20 | P.DS ---
Providers Expected date of discharge: 01/12/20 Attending physician: Michele Cotto Consults: 01/11/20 07:01 Consult Physician Routine Consulting Provider: Kojo Palacios Consult Reason/Comments: medical management Do you want consulting provider notified?: Yes Primary care physician: Rogelio Manuel - Discharge Diagnosis(es) (1) S/P total hip arthroplasty Current Visit: Yes Status: Acute (2) Osteoarthritis of right hip Current Visit: Yes Status: Acute Hospital Course: This is a 74-year-old female with known history of degenerative arthritis of the right hip. The patient presented for evaluation as an outpatient. After discussion and consideration patient elects to proceed with total hip arthroplasty. The patient is seen preoperatively by Dr. Cotto and medically cleared for surgery by their primary care physician. Patient is admitted to [facility] on 01/11/2020 for total hip arthroplasty. The procedure is performed without complication or sequelae. The patient is doing well postoperatively. Labs and vital signs are stable on day of discharge. On day of discharge patient's hip incision is healing well. There is minimal erythema. There is no drainage noted at this time. There is minimal soft tissue swelling to the hip and thigh. Patient has full foot and ankle motion without difficulty or pain. Calf is soft and nontender to palpation. Neurovascular status to the right lower extremity is intact. Patient is discharged home in good condition. Please see med rec for accurate list of home medications. Plan - Discharge Summary Discharge Rx Participant: No New Discharge Prescriptions: New Aspirin [Adult Low Dose Aspirin EC] 81 mg PO BID 30 Days #60 tablet. HYDROcodone/APAP 5-325MG [Jet 5-325] 1 - 2 tab PO Q6HR PRN #48 tab PRN Reason: Pain Sennosides [Senokot] 2 tab PO DAILY PRN #60 tablet PRN Reason: Constipation No Action Oxybutynin Chloride [Ditropan] 5 mg PO BID Furosemide [Lasix] 20 mg PO DIRECTED Fexofenadine HCl [Aishwarya Allergy] 180 mg PO DAILY PRN PRN Reason: Allergy Symptoms Ergocalciferol (Vitamin D2) [Vitamin D2] 50,000 unit PO Q30D Enalapril [Vasotec] 5 mg PO DAILY Metoprolol Succinate [Toprol XL] 50 mg PO HS Acetaminophen [Tylenol Arthritis] 650 mg PO DIRECTED PRN PRN Reason: Pain Omeprazole 20 mg PO QAM Discharge Medication List Enalapril [Vasotec] 5 mg PO DAILY 06/13/16 [History] Ergocalciferol (Vitamin D2) [Vitamin D2] 50,000 unit PO Q30D 06/13/16 [History] Fexofenadine HCl [Aishwarya Allergy] 180 mg PO DAILY PRN 06/13/16 [History] Furosemide [Lasix] 20 mg PO DIRECTED 06/13/16 [History] Metoprolol Succinate [Toprol XL] 50 mg PO HS 06/13/16 [History] Oxybutynin Chloride [Ditropan] 5 mg PO BID 06/13/16 [History] Acetaminophen [Tylenol Arthritis] 650 mg PO DIRECTED PRN 01/10/20 [History] Omeprazole 20 mg PO QAM 01/10/20 [History] Aspirin [Adult Low Dose Aspirin EC] 81 mg PO BID 30 Days #60 tablet. 01/12/20 [Rx] HYDROcodone/APAP 5-325MG [Jet 5-325] 1 - 2 tab PO Q6HR PRN #48 tab 01/12/20 [Rx] Sennosides [Senokot] 2 tab PO DAILY PRN #60 tablet 01/12/20 [Rx] Follow up Appointment(s)/Referral(s): [facility], [NON-STAFF] - 1-2 Days Michele Cotto DO [Doctor of Osteopathic Medicine] - 2 Weeks Activity/Diet/Wound Care/Special Instructions: Weightbearing as tolerated with walker. Leave dressing intact. Dressing may be removed by home care nurse or by patient in 10 days. May shower with dressing on. Please take aspirin 81mg twice daily for 30 days to prevent blood clots. Recommend use of compression stockings daily until follow up to help prevent swelling and blood clots. May remove at night before sleeping. Please follow-up with [facility] in 2 weeks and call with any questions or concerns, . Discharge Disposition: HOME WITH HOME HEALTH SERVICES
[2020-01-12] MEDS ORDERED: lisinopriL 10 MG TAB PO SCH (09:00)
[2020-01-12] MEDS ORDERED: FUROSEMIDE 20 MG TAB PO SCH (09:00)
[2020-01-12 09:28] LABS: African American GFR (CKD) 51.9 (60.0-200.0); Anion Gap 3.4 mmol/L (4.00-12.00); BUN/Creat Ratio 20.83 Ratio (12.00-20.00); Calcium 9.3 mg/dL (8.7-10.3); Carbon Dioxide 25.6 mmol/L (21.6-31.8); Non-African American GFR(CKD) 44.8 (60.0-200.0); Potassium 4.8 mmol/L (3.5-5.5)
--- NOTE | 2020-01-12 20:58 | PN ---
PROGRESS NOTE DATE OF SERVICE: 01/12/2020 This 74-year-old woman who was admitted after right total hip joint arthroplasty is improving significantly. No chest pain. No palpitations. No fever. PHYSICAL EXAMINATION: Alert and oriented x3. Pulse 54, blood pressure 98/60, respiration 18, temperature 97.9, pulse ox 95% on room air. HEENT: Conjunctivae normal. NECK: No jugular venous distention. CARDIOVASCULAR SYSTEM: S1, S2 muffled. RESPIRATORY SYSTEM: Breath sounds diminished at the bases. A few scattered rhonchi and crackles. ABDOMEN: Soft, non-tender. NAUSEA LEGS: No edema. No swelling. NERVOUS SYSTEM: No focal deficit. LABS: WBC 6.2, hemoglobin 9.1. Other labs are noted. ASSESSMENT: 1. Status post right total hip joint arthroplasty. 2. Mild postoperative nausea, improved. 3. Chronic kidney disease as baseline, possibly stage 1. 4. Gastroesophageal reflux disease. 5. Hypertension. 6. History of degenerative joint disease. 7. History of deep venous thrombosis, left arm. 8. History of varicose veins. 9. Constipation. 10.History of sepsis in 2017. 11.History of vertigo. 12.Cholecystectomy. 13.History of hysterectomy. 14.History of esophagogastroduodenoscopy with dilatation. 15.FULL CODE. RECOMMENDATIONS AND DISCUSSION: I recommend to continue current medications, continue with the monitoring, symptomatic treatment. DVT prophylaxis. Continue the home medications. Closely follow with primary physician in the outpatient setting. Further recommendations to follow. MMODL / IJN: [id number] /
[2020-02-09] MEDS ORDERED: ERGOCALCIFEROL 50,000 UNIT CAP PO SCH (09:00)
== END 2020-01-12 12:07 | disposition home health service (06) ==
LOC: OR 05:51 → 5NMEDONC 11:36 → OR 01-12 12:07
PROVIDERS: ATTEND Orthopaedic Surgery
DX: M16.11 Unilateral primary osteoarthritis, right hip (principal); I12.9 Hypertensive chronic kidney disease with stage 1 through stage 4 chronic kidney disease, or unspecified chronic kidney disease; N18.9 Chronic kidney disease, unspecified; K21.9 Gastro-esophageal reflux disease without esophagitis; I83.90 Asymptomatic varicose veins of unspecified lower extremity; Z90.710 Acquired absence of both cervix and uterus; Z86.718 Personal history of other venous thrombosis and embolism; Z90.49 Acquired absence of other specified parts of digestive tract; Z86.19 Personal history of other infectious and parasitic diseases; Z88.5 Allergy status to narcotic agent; Z91.018 Allergy to other foods; Z79.899 Other long term (current) drug therapy; Z96.653 Presence of artificial knee joint, bilateral; Z85.51 Personal history of malignant neoplasm of bladder; Z97.3 Presence of spectacles and contact lenses; Z82.49 Family history of ischemic heart disease and other diseases of the circulatory system; Z88.8 Allergy status to other drugs, medicaments and biological substances; Z80.8 Family history of malignant neoplasm of other organs or systems; Z80.42 Family history of malignant neoplasm of prostate
CPT/HCPCS: 97116; 97110; 97161; 97166; 86891; 86900; 86901; 80048; 85025; 86850; 81003; 88300; 73501; 27130; P9022; C1776; J2250; J0171; J1100; J0690 ×2; J2405; J2001; J3010; J1885; J1170 ×2; J2795; J0330; J2704; J0735

== ENCOUNTER → 2020-04-25 | Outpatient (CLI) | payer MEDICARE ==
[2020-04-25 10:10] LABS: Appearance,Urine Clear (Clear); Bilirubin,Urine Negative (Negative); Blood,Urine Negative (Negative); Color,Urine Light Yellow; Glucose,Urine (UA) Negative (Negative); Ketones,Urine Negative (Negative); Leukocyte Esterase,Urine Negative (Negative); Nitrite,Urine Negative (Negative); PH, Urine 5.5 (5.0-8.0); Protein,Urine Negative (Negative); Specific Gravity,Urine 1.013 (1.001-1.035); Urobilinogen,Urine <2.0 mg/dL (<2.0)
[2020-04-25 15:33] LABS: Basophils # (A) 0.03 X 10*3/uL (0.00-0.10); Basophils % (A) 0.5 %; Eosinophils # (A) 0.11 X 10*3/uL (0.04-0.35); Eosinophils % (A) 1.9 %; HCT 39.6 % (37.2-46.3); HGB 12.3 g/dL (12.0-15.0); Lymphocytes % (A) 13.9 %; MCH 30.5 pg (27.0-32.0); MCHC 31.1 g/dL (32.0-37.0); MCV 98.3 fL (80.0-97.0); Mean Platelet Volume 9.3 fL (9.5-12.2); Monocytes # (A) 0.58 X 10*3/uL (0.20-1.00); Monocytes % (A) 10.1 %; Neutrophils % (A) 73.3 %; Platelet Count 223 X 10*3/uL (140-440); RBC 4.03 X 10*6/uL (4.10-5.20); RDW 12.7 % (11.5-14.5); WBC 5.74 X 10*3/uL (4.50-10.00)
[2020-04-25 17:58] LABS: % Iron Saturation 15.26 (12.00-45.00); African American GFR (CKD) 57.3 (60.0-200.0); BUN/Creat Ratio 23.64 Ratio (12.00-20.00); Non-African American GFR(CKD) 49.4 (60.0-200.0); Potassium 4.7 mmol/L (3.5-5.5); Uric Acid 6.5 mg/dL (2.9-7.7)
[2020-04-25 18:06] LABS: Ferritin 54.3 ng/mL (10.0-291.0)
== END | disposition home or self-care (01) ==
LOC: LABWHC1 09:10
PROVIDERS: ATTEND Nurse Practitioner Family
DX: N39.0 Urinary tract infection, site not specified (principal); E55.9 Vitamin D deficiency, unspecified; N25.81 Secondary hyperparathyroidism of renal origin; M10.9 Gout, unspecified; D63.1 Anemia in chronic kidney disease; N18.30 Chronic kidney disease, stage 3 unspecified
CPT/HCPCS: 36415; 80048; 81003; 82306; 82728; 83540; 83550; 83970; 84550; 85025

== ENCOUNTER → 2020-06-19 | Outpatient (CLI) | payer MEDICARE ==
--- NOTE | 2020-06-19 14:56 | BD ---
EXAMINATION TYPE: Axial Bone Density DATE OF EXAM: 06/19/2020 COMPARISON: 03/24/2013 CLINICAL HISTORY: 75-year-old female Z78.0, asymptomatic postmenopausal screening Height: 63 IN Weight: 189 LBS FRAX RISK QUESTIONS: Secondary Osteoporosis: 3. Menopause before 45: YES PARTIAL HYST AGE 39 RISK FACTORS HISTORY OF: Surgery to Hip(right): 01/2020 Family History of Osteoporosis: MOTHER/FATHER/SISTER Active: YES Diet low in dairy products/other sources of calcium: YES Postmenopausal woman: PARTIAL HYST AGE 39 MEDICATIONS: Additional Medications: CALCIUM, VIT D, ENALAPRIL MALEATE, OXYBUTYNIN, METOPROLOL, FUROSEMIDE, OMEPRA ZOLE, Additional History: BLADDER CANCER NO TREATMENT EXAM MEASUREMENTS: Bone mineral densitometry was performed using the [employer] System. Bone mineral density as measured about the Lumbar spine is: ----- L1-L4(G/cm2): 1.126 T Score Values are as follows: ----- L2: -0.6 ----- L3: -0.5 ----- L4: -0.5 ----- L1-L4: -0.4 Bone mineral density has: Decreased -8.6% since study of: 03/24/2013 Bone mineral density about the L hip (g/cm2): 0.636 T Score values are as follows: -----L Neck: -2.9 -----L Total: -2.5 Bone mineral density has: Decreased 14.8% since study of: 03/24/2013 IMPRESSION: Osteoporosis (T Score less than -2.5). There is increased fracture risk and therapy is usually indicated based on age. Re-Screen 1-2 years. NOTE: T-SCORE=SD OF THE YOUNG ADULT MEAN.
--- NOTE | 2020-06-21 09:23 | MM ---
Reason for exam: screening (asymptomatic). Last mammogram was performed 2 years and 3 months ago. History: Patient is postmenopausal, history of other cancer, and is nulliparous. Physical Findings: A clinical breast exam by your physician is recommended on an annual basis and results should be correlated with mammographic findings. MG 3D Screening Mammo W/Cad Bilateral CC and MLO view(s) were taken. Prior study comparison: March 18, 2018, bilateral MG screening mammo w CAD. January 13, 2014, bilateral MG screening mammo w CAD. The breast tissue is heterogeneously dense. This may lower the sensitivity of mammography. Distortion versus superimposition shadow lateral right CC view. Nodularity medial central left CC view is more defined. ASSESSMENT: Incomplete: need additional imaging evaluation, BI-RAD 0 RECOMMENDATION: Special view mammogram of both breasts. (3D) If lesion persists on supplemental views, image directed ultrasound is recommended. [facility] will attempt to contact patient to return for supplemental views and ultrasound if indicated.
== END | disposition home or self-care (01) ==
LOC: RADBDWWP 12:39
PROVIDERS: ATTEND Family Medicine
DX: Z12.31 Encounter for screening mammogram for malignant neoplasm of breast (principal); M81.0 Age-related osteoporosis without current pathological fracture; Z78.0 Asymptomatic menopausal state
CPT/HCPCS: 77063; 77067; 77080

== ENCOUNTER → 2020-09-19 | Outpatient (CLI) | payer MEDICARE | END | disposition home or self-care (01) | LOC: LABWHC1 14:38 | PROVIDERS: ATTEND Family Medicine | DX: Z53.9 Procedure and treatment not carried out, unspecified reason (principal) ==

== ENCOUNTER → 2020-12-05 | Outpatient (CLI) | payer MEDICARE ==
[~2020-12-05] MED LIST changes: -ACETAMINOPHEN TAB 500 MG TAB PO ONE; -DEXAMETHASONE SOD PHOSPHATE 4 MG/ML 1 ML VIAL IV ONE; -GABAPENTIN 300 MG CAP PO ONE; -HYDROmorphone 0.5 MG/0.5 ML SYRINGE IVP PRN; -LIDOCAINE 1% (10MG/ML) FOR IV START INTRADERMA PRN; -MELOXICAM 7.5 MG TAB PO ONE; -MIDAZOLAM 2 MG/2 ML VIAL IV PRN; -ONDANSETRON 4 MG/2 ML VIAL IVP ONE; +SODIUM CHLORIDE 0.9% 500 ML 500 ML in EMPTY BAG 1 BAG IV PRN; -TRANEXAMIC ACID 1,000 MG in SODIUM CHLORIDE 0.9% 100 ML IVPB ONE; +ZOLEDRONIC ACID 5 MG in SODIUM CHLORIDE 0.9% 100 ML IV NR
[2020-12-05 14:56] VITALS: BP 129/78; PULSE 57; RESP 16; TEMP 98.2
== END ==
LOC: PROCWHC3 12:44
PROVIDERS: ATTEND Family Medicine
DX: M81.0 Age-related osteoporosis without current pathological fracture (principal); Z91.018 Allergy to other foods; Z91.02 Food additives allergy status; Z88.6 Allergy status to analgesic agent
CPT/HCPCS: 96365; J3489

== ENCOUNTER → 2021-11-01 | Outpatient (CLI) | payer MEDICARE ==
--- NOTE | 2021-11-01 12:01 | US ---
EXAMINATION TYPE: US abdomen complete DATE OF EXAM: 11/01/2021 COMPARISON: CT 2017 CLINICAL HISTORY: R17 UNSPECIFIC JAUNDICE. elevated liver enzymes gallbladder removed. TECHNIQUE: Multiple sonographic images of the abdomen are obtained. FINDINGS: EXAM MEASUREMENTS: Liver Length: 16.5 cm Gallbladder Wall: Surgically absent cm CBD: .3 cm Spleen: 9.1 cm Right Kidney: 9.5 x 4.6 x 4.6 cm Left Kidney: 10 x 3.4 x 2.9 cm [employer]ER NOTES: Pancreas: Tail obscured by overlying bowel gas Liver: Increased attenuation Gallbladder: Surgically absent Evidence for sonographic Trevino's sign: No CBD: wnl Spleen: wnl Right Kidney: No hydronephrosis or masses seen Left Kidney: No hydronephrosis or masses seen Upper IVC: wnl Abd Aorta: wnl The visualized liver is slightly heterogeneously hyperechoic. Evaluation for focal masses suboptimal due to the heterogeneity. The intrahepatic portion of the IVC and visualized abdominal aorta are with in normal limits. Gallbladder is surgically absent. Common bile duct is within normal limits after c holecystectomy. The visualized portions of the pancreas are homogenous. The spleen is unremarkable. Kidneys are symmetric and free of hydronephrosis. No renal lesions are seen. IMPRESSION: Heterogeneous hyperechoic appearance of liver could be on the basis of diffuse fatty infi ltration and/or underlying hepatocellular disease. No biliary dilatation or ascites noted.
== END | disposition home or self-care (01) ==
LOC: RADUSWWP 08:22
PROVIDERS: ATTEND Family Medicine
DX: R17 Unspecified jaundice (principal)
CPT/HCPCS: 76700

== ENCOUNTER → 2022-03-18 | Outpatient (CLI) | payer MEDICARE ==
--- NOTE | 2022-03-18 14:47 | USB ---
Reason for Exam: Clinical finding. Patient History: Menarche at age 13. Patient has no children. Hysterectomy at age 39. Postmenopausal. Other cancer. Risk Values: Emmy 5 year model risk: 2.0%. NCI Lifetime model risk: 4.0%. Prior Study Comparison: 01/13/2014 Bilateral Screening Mammogram, [facility]. 03/18/2018 Bilateral Screening Mammogram, [facility]. 06/19/2020 Bilateral Screening Mammogram, [facility]. Findings: The whole breast of both breasts, the axilla of both breasts and the retroareolar of both breasts were scanned. Patient reports she is unable to have mammogram secondary to inability to raise arms. A complete US of all four quadrants of both breasts and retro-areolar region were reviewed. No solid or cystic masses are identified. Single dilated duct within the right breast at the nipple without intraluminal mass. Overall Assessment: Benign, BI-RAD 2 Management: Screening Mammogram of both breasts in 1 year. A clinical breast exam by your physician is recommended on an annual basis and results should be correlated with mammographic findings. This exam should not preclude additional follow-up of suspicious palpable abnormalities. Results were given to the patient verbally at the time of exam. Electronically signed and approved by: Aris Narayan D.O.
== END | disposition home or self-care (01) ==
LOC: RADUSWWP 14:06
PROVIDERS: ATTEND Family Medicine
DX: N63.10 Unspecified lump in the right breast, unspecified quadrant (principal); Z78.0 Asymptomatic menopausal state

== ENCOUNTER → 2023-01-10 | Outpatient (CLI) | payer MEDICARE ==
--- NOTE | 2023-01-10 13:02 | US ---
EXAMINATION TYPE: US kidneys/renal and bladder DATE OF EXAM: 01/10/2023 COMPARISON: Demerol ultrasound 11/01/2021, renal ultrasound 01/06/2019 CLINICAL INDICATION: Female, 77 years old with history of CKD N18.31; CKD, bladder cancer 2019 EXAM MEASUREMENTS: Right Kidney: 9.0x3.7x4.4 cm Left Kidney: 10.0x3.8x3.8 cm Post Void Residual Volume: 12.8 mL Right Kidney: wnl Left Kidney: wnl Bladder: wnl, partially obscured by bowel Bilateral Jets seen: unable to assess due to flash artifact from overlying bowel Normal Post Void Residual: Yes There is no evidence for hydronephrosis at this point in time. No nephrolithiasis is seen. No dar s are identified. Cortical medullary differentiation is maintained. The urinary bladder is distended which limits evaluation. No gross abnormality. IMPRESSION: No hydronephrosis or nephrolithiasis.
[2023-01-10 17:55] LABS: Basophils # (A) 0.02 X 10*3/uL (0.00-0.10); Basophils % (A) 0.4 %; Eosinophils # (A) 0.08 X 10*3/uL (0.04-0.35); Eosinophils % (A) 1.4 %; HGB 13.8 g/dL (12.0-15.0); Lymphocytes # (A) 0.78 X 10*3/uL (0.90-5.00); Lymphocytes % (A) 13.8 %; MCH 30.9 pg (27.0-32.0); MCHC 32.1 g/dL (32.0-37.0); MCV 96.2 FL (80.0-97.0); Mean Platelet Volume 9.9 FL (9.5-12.2); Monocytes # (A) 0.48 X 10*3/uL (0.20-1.00); Monocytes % (A) 8.5 %; NRBC Per 100 WBC 0 X 10*3/uL (0.00-0.01); Neutrophils # (A) 4.27 X 10*3/uL (1.80-7.70); Neutrophils % (A) 75.5 %; Platelet Count 200 X 10*3/uL (140-440); RBC 4.47 X 10*6/uL (4.10-5.20); RDW 12.8 % (11.5-14.5); WBC 5.65 X 10*3/uL (4.50-10.00)
[2023-01-10 18:20] LABS: Bilirubin, Conjugated 0.3 mg/dL (0.20-0.40); Bilirubin,Unconjugated 0.8 mg/dL (0.20-1.00); Total Bilirubin 1.1 mg/dL (0.3-1.2)
== END | disposition home or self-care (01) ==
LOC: RADUSWWP 12:19
PROVIDERS: ATTEND Internal Medicine Nephrology
DX: N18.31 Chronic kidney disease, stage 3a (principal); Z85.51 Personal history of malignant neoplasm of bladder
CPT/HCPCS: 76770; 82248; 84450; 84460; 85025

== ENCOUNTER 2023-03-13 18:10 | Emergency (ER) | payer OTHER, MEDICARE ==
[2023-03-13 18:44] VITALS: TEMP 97
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
[2023-03-13 20:22] VITALS: RESP 18
[2023-03-13] MEDS ORDERED: SODIUM CHLORIDE 0.9% 500 ML IV STA (20:35)
[2023-03-13] MEDS ORDERED: SODIUM CHLORIDE 0.9% 1,000 ML IV STA (20:35)
[2023-03-13] MEDS ORDERED: MORPHINE SULFATE 2 MG/ML SYRINGE IVP STA ×2 (20:40→22:55)
[2023-03-13 21:10] LABS: Basophils % (A) 0 %; Eosinophils % (A) 0 %; HCT 37.8 % (34.0-46.0); Lymphocytes # (A) 0.6 k/uL (1.0-4.8); Lymphocytes % (A) 5 %; MCH 32.6 pg (25.0-35.0); MCHC 34.3 g/dL (31.0-37.0); MCV 95.2 fL (80.0-100.0); Mean Platelet Volume 7.7; Monocytes # (A) 0.5 k/uL (0-1.0); Monocytes % (A) 4 %; Neutrophils # (A) 11.4 k/uL (1.3-7.7); Neutrophils % (A) 90 %; Platelet Count 206 k/uL (150-450); RBC 3.98 m/uL (3.80-5.40); RDW 12.6 % (11.5-15.5); WBC 12.6 k/uL (3.8-10.6)
[2023-03-13 21:19] LABS: Partial Thromboplastin Time 28.5 sec (22.0-30.0); Prothrombin Time 10.6 sec (10.0-12.5)
[2023-03-13 21:41] LABS: ALT 22 U/L (4-34); African American GFR (CKD) 74 (>60 ml/min/1.73 sqM); Albumin 3.9 g/dL (3.5-5.0); Anion Gap 9 mmol/L; Blood Urea Nitrogen 18 mg/dL (7-17); Calcium 9.6 mg/dL (8.4-10.2); Carbon Dioxide 24 mmol/L (22-30); Chloride 105 mmol/L (98-107); Glucose 104 mg/dL (74-99); Non-African American GFR(CKD) 64 (>60 ml/min/1.73 sqM); Sodium 138 mmol/L (137-145); Total Bilirubin 1.4 mg/dL (0.2-1.3); Total Protein 6.1 g/dL (6.3-8.2)
[2023-03-13 21:42] LABS: AST 34 U/L (14-36); Alkaline Phosphatase 75 U/L (38-126); Potassium 4.7 mmol/L (3.5-5.1)
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
[2023-03-13 23:42] VITALS: BP 133/87; PULSE 96
== END 2023-03-14 00:21 | disposition home or self-care (01) ==
LOC: EC 18:10
DX: S22.41XA Multiple fractures of ribs, right side, initial encounter for closed fracture (principal); S80.02XA Contusion of left knee, initial encounter; I10 Essential (primary) hypertension; Z79.899 Other long term (current) drug therapy; Z88.6 Allergy status to analgesic agent; Z91.018 Allergy to other foods; Z88.8 Allergy status to other drugs, medicaments and biological substances; V89.2XXA Person injured in unspecified motor-vehicle accident, traffic, initial encounter; Y92.410 Unspecified street and highway as the place of occurrence of the external cause
CPT/HCPCS: 36415; 80053; 85025; 85610; 85730; 71101; 73552; 73562; 99284; 96374; 96376; 96361; J2270

== ENCOUNTER → 2024-06-09 | Outpatient (CLI) | payer MEDICARE ==
[2024-06-09 16:43] LABS: Appearance,Urine Clear (Clear); Bilirubin,Urine Negative (Negative); Blood,Urine Negative (Negative); Color,Urine Colorless; Glucose,Urine (UA) Negative (Negative); Ketones,Urine Negative (Negative); Leukocyte Esterase,Urine Negative (Negative); Nitrite,Urine Negative (Negative); Protein,Urine Negative (Negative); Specific Gravity,Urine 1.009 (1.001-1.035); Urobilinogen,Urine <2.0 mg/dL (<2.0)
[2024-06-09 18:09] LABS: Basophils # (A) 0.03 X 10*3/uL (0.00-0.10); Basophils % (A) 0.5 %; Eosinophils # (A) 0.05 X 10*3/uL (0.04-0.35); Eosinophils % (A) 0.8 %; HCT 43.2 % (37.2-46.3); HGB 14.3 g/dL (12.0-15.0); Lymphocytes # (A) 0.86 X 10*3/uL (0.90-5.00); Lymphocytes % (A) 14.6 %; MCH 31.8 pg (27.0-32.0); MCHC 33.1 g/dL (32.0-37.0); MCV 96.2 FL (80.0-97.0); Monocytes # (A) 0.37 X 10*3/uL (0.20-1.00); Monocytes % (A) 6.3 %; NRBC Per 100 WBC 0 X 10*3/uL (0.00-0.01); Neutrophils # (A) 4.56 X 10*3/uL (1.80-7.70); Neutrophils % (A) 77.5 %; Platelet Count 218 X 10*3/uL (140-440); RBC 4.49 X 10*6/uL (4.10-5.20); RDW 12.6 % (11.5-14.5); WBC 5.89 X 10*3/uL (4.50-10.00)
[2024-06-09 18:40] LABS: % Iron Saturation 31.13 (12.00-45.00); BUN/Creat Ratio 13.73 Ratio (12.00-20.00); Blood Urea Nitrogen 15.1 mg/dL (9.0-27.0); Carbon Dioxide 25.3 mmol/L (21.6-31.8); Chloride 104 mmol/L (96-109); Glucose 101 mg/dL (70-110); Iron 113 UG/DL (50-170); Magnesium 1.9 mg/dL (1.5-2.4); Phosphorus 2.4 mg/dL (2.4-5.1); Potassium 4.2 mmol/L (3.5-5.5); Sodium 143 mmol/L (135-145); Total Iron Binding Capacity 363 UG/DL (228-460); Uric Acid 6.7 mg/dL (2.9-7.7)
[2024-06-09 18:41] LABS: Albumin 4.6 g/dL (3.8-4.9); Calcium 10.5 mg/dL (8.7-10.3)
[2024-06-10 03:17] LABS: Microalbumin Creatinine Ratio <29 mg/g Cr (0-30); Urine Creatinine 40.9 mg/dL (28.0-217.0)
[2024-06-10 10:59] LABS: Free Kappa Lt Chain Qnt, Serum 1.41 mg/dL (0.33-1.94); Free Lambda Lt Chain Qnt, Seru 1.04 mg/dL (0.57-2.63)
== END | disposition home or self-care (01) ==
LOC: LABWHC1 15:17
PROVIDERS: ATTEND Internal Medicine Nephrology
DX: N25.81 Secondary hyperparathyroidism of renal origin (principal); N18.31 Chronic kidney disease, stage 3a; E55.9 Vitamin D deficiency, unspecified; E21.3 Hyperparathyroidism, unspecified; M10.9 Gout, unspecified; N39.0 Urinary tract infection, site not specified; R80.9 Proteinuria, unspecified; D63.1 Anemia in chronic kidney disease
CPT/HCPCS: 36415; 80048; 81003; 82040; 82043; 82164; 82306; 82570; 82652; 82728; 83540; 83550; 83735; 83883; 83970; 84100; 84550; 85025; 86334; 86335

== ENCOUNTER → 2024-07-07 | Outpatient (CLI) | payer MEDICARE ==
[2024-07-07] MEDS: DENOSUMAB 60 MG/ML 1 ML SYRINGE SQ NR (12:55)
[2024-07-07 13:04] VITALS: BP 144/76; PULSE 75; RESP 16; TEMP 97.5
== END ==
LOC: PROCWHC3 12:49
PROVIDERS: ATTEND Family Medicine
DX: M81.0 Age-related osteoporosis without current pathological fracture (principal)
CPT/HCPCS: 96372; J0897